=== PATIENT | female | born 1940 | race Caucasian/White ===

== ENCOUNTER → 2016-11-06 | Outpatient (CLI) | payer OTHER ==
[2015-11-11 17:08] VITALS: BP 146/82
--- NOTE | 2016-11-06 16:34 | RAD ---
CHEST RADIOGRAPHS PA AND LATERAL VIEWS CLINICAL HISTORY: 75-year-old female with dyspnea and chest pain. COMPARISON: Chest radiograph August 03, 2014. FINDINGS: The cardiopericardial silhouette is normal. There is no focal consolidation, pleural effu dalia or pneumothorax. The lungs are well inflated. Pulmonary vascularity is normal. Imaged osseous s tructures are intact. Soft tissues are unremarkable. IMPRESSION: No acute cardiopulmonary process. Reported By:
== END ==
LOC: RAD 15:05
PROVIDERS: ATTEND Nurse Practitioner Family
DX: R06.09 Other forms of dyspnea (principal); R07.89 Other chest pain; I10 Essential (primary) hypertension
CPT/HCPCS: 71020

== ENCOUNTER 2016-11-21 13:32 | Emergency (ER) | payer OTHER ==
[2016-11-21 13:37] VITALS: BMI 27.9
[2016-11-21] MEDS ORDERED: NS IV ONE (14:51)
[2016-11-21] MEDS ORDERED: TORADOL 60 MG VIAL IVP ONE (14:54)
[2016-11-21] MEDS ORDERED: NORFLEX INJ IM ONE (14:56)
[2016-11-21] MEDS ORDERED: NS 1/2 1000 ML IV 1,000 ML IV ONE (14:59)
--- NOTE | 2016-11-21 15:00 | DR.GENAD ---
HPI - PCP Primary Care Physician: bernadette - Complaint/Symptoms Chief Complaint Doctors Comments: Right flank pain and right sided pelvic pain. Chief Complaint:: right side and back pain pt thinks she has a UTI - Nurses notes reviewed Nurses Notes Review: Yes - Source History Provided: Patient - Mode of Arrival Mode of Arrival: Ambulatory - Timing Onset of Chief Complaint: 11/20/16 Came on: Gradually - Duration Duration: Intermittent - Severity Severity: Moderate - Other History Other History: nephrolithiasis PMH - PMH Past Medical History: Yes Past Medical History: GERD, Hypertension Past Surgical History: Yes Surgical History: Angioplasty/Stents, Appendectomy, Hysterectomy, Tonsillectomy - Family History History of Family Medical Conditions: Yes Family Medical History: [place], Coronary Artery Disease - Social History Does patient currently use any type of tobacco product: No Have you used tobacco products in the last 12 months: No Type of Tobacco Use: None Does any household member use tobacco: No Alcohol Use: None Do you use any recreational Drugs:: No Lives With: Family Lives Where: Home - infectious screening In the last 2 months have you had wt loss of >10#?: NO Have you had fever, night sweats or hemotysis?: No Have you traveled outside the country in the last 6 months?: No Isolation: Standard ROS - Review of Systems Constitutional: No Symptoms Reported Eyes: No Symptoms Reported ENTM: No Symptoms Reported Respiratoy: No Symptoms Reported Cardiovascular: No Symptoms Reported Gastrointestinal/Abdominal: No Symptoms Reported Genitourinary: Dysuria, Frequency, Hematuria, Other (She was seen yesterday in her PCP's office. U/A revealed nitrite positive and blood. Flank pain started this morning.) Musculoskeletal: No Symptoms Reported Integumentary: No Symptoms Reported Hematologic/Lymphatic: No Symptoms Reported Psychiatric: No Symptoms Reported All Other Systems: Reviewed and Negative PE - Vital Signs Vitals: Temperature 98 F Pulse Rate 80 Respiratory Rate 18 Blood Pressure [Right Arm] 105/64 Blood Pressure 170/100 O2 Sat by Pulse Oximetry 98 - General Limitations: No Limitations General Appearance: Alert, Anxious - Neck Neck Exam: Normal Inspection, Full ROM - Chest Chest Inspection: Normal Inspection - Respiratory Respiratory Exam: Normal Lung Sounds Bilat - Cardiovascular Cardiovascular Exam: Regular Rate, Normal Rhythm, Normal Heart Sounds - Abdominal Exam Abdominal Exam: Normal Inspection, Normal Bowel Sounds, Soft - Extremities Extremities Exam: Normal Inspection, Full ROM - Back Back Exam: (R) CVA Tenderness - Psychiatric Psychiatric Exam: Normal Affect - Skin Skin Exam: Warm, Dry, Intact, Normal Color ROR - Labs Reviewed Result Diagrams: 11/21/16 15:11 11/21/16 15:11 Laboratory: WBC 17.6 X10^3/uL (3.6-10.0) H 11/21/16 15:11 RBC 5.41 X10^6/uL (3.5-5.4) H 11/21/16 15:11 Hgb 15.9 g/dL (12.0-16.0) 11/21/16 15:11 Hct 47.1 % (36.0-47.0) H 11/21/16 15:11 MCV 87.1 fL (80.0-100.0) 11/21/16 15:11 MCH 29.4 pg (27.0-34.0) 11/21/16 15:11 MCHC 33.7 g/dL (33.0-35.0) 11/21/16 15:11 RDW 14.4 % (11.6-16.5) 11/21/16 15:11 Plt Count 220 X10^3/uL (150.0-450.0) 11/21/16 15:11 MPV 9.4 fL (7.4-11.0) 11/21/16 15:11 Neut % 85.1 % (42.0-75.0) H 11/21/16 15:11 Lymph % 7.3 % (21.0-51.0) L 11/21/16 15:11 Lewis % 7.1 % (0.0-13.0) 11/21/16 15:11 Eos % 0.1 % (0.9-2.9) L 11/21/16 15:11 Baso % 0.4 % (0.2-1.0) 11/21/16 15:11 Neut # 15.0 x10^3/uL (2.2-4.8) H 11/21/16 15:11 Lymph # 1.3 X10^3/uL (1.3-2.9) 11/21/16 15:11 Lewis # 1.2 x10^3/uL (0.3-0.8) H 11/21/16 15:11 Eos # 0.0 x10^3/uL (0.0-0.2) 11/21/16 15:11 Baso # 0.1 X10^3/uL (0.0-0.1) 11/21/16 15:11 Absolute Nucleated RBC 0.0 /100WBC 11/21/16 15:11 Sodium 141 mmol/L (136-145) 11/21/16 15:11 Corrected Sodium 142 mmol/L (136-145) 11/21/16 15:11 Potassium 4.1 mmol/L (3.5-5.1) 11/21/16 15:11 Chloride 105 mmol/L (98-107) 11/21/16 15:11 Carbon Dioxide 26.5 mmol/L (21-32) 11/21/16 15:11 BUN 23 mg/dL (7-18) H 11/21/16 15:11 Creatinine 1.10 mg/dL (0.55-1.02) H 11/21/16 15:11 Est GFR (MDRD) Af Amer > 60 (>60) 11/21/16 15:11 Est GFR (MDRD) Non-Af 51 (>60) L 11/21/16 15:11 Glucose 121 mg/dL (65-99) H 11/21/16 15:11 Calcium 9.5 mg/dL (8.5-10.1) 11/21/16 15:11 Corrected Calcium TNP 11/21/16 15:11 Total Bilirubin 0.70 mg/dL (0.2-1.0) 11/21/16 15:11 AST 26 Units/L (15-37) 11/21/16 15:11 ALT 33 Units/L (12-78) 11/21/16 15:11 Alkaline Phosphatase 82 Units/L (46-116) 11/21/16 15:11 Total Protein 7.9 g/dL (6.4-8.2) 11/21/16 15:11 Albumin 3.7 g/dL (3.4-5.0) 11/21/16 15:11 Globulin 4.2 g/dL (2.5-4.5) 11/21/16 15:11 Albumin/Globulin Ratio 0.9 Ratio (1.1-2.1) L 11/21/16 15:11 Specimen Type Clean catch urine 11/21/16 14:57 Urine Color Yellow (YELLOW) 11/21/16 14:57 Urine Appearance Cloudy (CLEAR) 11/21/16 14:57 Urine RBC 25-50 /HPF (NEGATIVE) 11/21/16 14:57 Urine WBC 0-3 /HPF (NEGATIVE) 11/21/16 14:57 Ur Squamous Epith Cells Moderate /HPF (NEGATIVE) 11/21/16 14:57 Urine Bacteria 1+ /HPF (Negative) 11/21/16 14:57 Ur Culture Indicated? Yes/culture set up 11/21/16 14:57 Micro UA Comment Unable to perform (-) 11/21/16 14:57 - Diagnosis Discharge Problem: Ureteral stone, UTI (urinary tract infection), Right nephrolithiasis, Hydroureteronephrosis, Ureterolithiasis - Discharge Plan Disposition: HOME, SELF-CARE Condition: Stable - Follow ups/Referrals Follow ups/Referrals: ELISA ESPINO [Primary Care Provider] - 3 days - Instructions Additional Notes - Additional Notes Additional Notes: I spoke with Dr. Brady Dixon and he agrees to accept this patient in transfer to [facility].
[2016-11-21] MEDS ORDERED: TORADOL 60 MG VIAL ONE (15:10)
[2016-11-21] MEDS ORDERED: NORFLEX INJ ONE (15:11)
[2016-11-21 15:17] LABS: BASOPHILS # (AUTO) 0.1 X10^3/uL (0.0-0.1); BASOPHILS % (AUTO) 0.4 % (0.2-1.0); EOSINOPHILS % (AUTO) 0.1 % (0.9-2.9); HEMATOCRIT 47.1 % (36.0-47.0); HEMOGLOBIN 15.9 g/dL (12.0-16.0); LYMPHOCYTES # (AUTO) 1.3 X10^3/uL (1.3-2.9); LYMPHOCYTES % (AUTO) 7.3 % (21.0-51.0); MEAN CORPUSCULAR HEMOGLOBIN 29.4 pg (27.0-34.0); MEAN CORPUSCULAR HGB CONC 33.7 g/dL (33.0-35.0); MEAN CORPUSCULAR VOLUME 87.1 fL (80.0-100.0); MEAN PLATELET VOLUME 9.4 fL (7.4-11.0); MONOCYTES # (AUTO) 1.2 x10^3/uL (0.3-0.8); MONOCYTES % (AUTO) 7.1 % (0.0-13.0); NEUTROPHILS % (AUTO) 85.1 % (42.0-75.0); PLATELET COUNT 220 X10^3/uL (150.0-450.0); RED BLOOD COUNT 5.41 X10^6/uL (3.5-5.4); RED CELL DISTRIBUTION WIDTH 14.4 % (11.6-16.5); WHITE BLOOD COUNT 17.6 X10^3/uL (3.6-10.0)
[2016-11-21 15:22] LABS: APPEARANCE,URINE CLOUDY (CLEAR); BACTERIA,URINE 1+ /HPF (Negative); COLOR,URINE YELLOW (YELLOW); RBC,URINE 25-50 /HPF (NEGATIVE); SQUAMOUS EPITHELIAL CELL,UR MODERATE /HPF (NEGATIVE)
[2016-11-21 15:27] LABS: ALANINE AMINOTRANSFERASE 33 Units/L (12-78); ALBUMIN 3.7 g/dL (3.4-5.0); ALKALINE PHOSPHATASE 82 Units/L (46-116); ASPARTATE AMINO TRANSFERASE 26 Units/L (15-37); BLOOD UREA NITROGEN 23 mg/dL (7-18); CALCIUM 9.5 mg/dL (8.5-10.1); CARBON DIOXIDE 26.5 mmol/L (21-32); CHLORIDE 105 mmol/L (98-107); COR NA(FOR HYPERGLY) 142 mmol/L (136-145); GLUCOSE 121 mg/dL (65-99); SODIUM 141 mmol/L (136-145); TOTAL PROTEIN 7.9 g/dL (6.4-8.2); eGFR BLACK RACES > 60 (>60); eGFR NON BLACK RACES 51 (>60)
[2016-11-21] MEDS ORDERED: LEVAQUIN PREMIX IV 500 MG 500 MG/100 ML BAG IV ONE ×2 (15:39→16:07)
--- NOTE | 2016-11-21 15:46 | CT ---
CT abdomen and pelvis without contrast Indication: Hematuria with right lower abdominal and flank pain Comparison: 09/29/2014 Technique: Multiple axial images of the abdomen and pelvis were obtained from the lung bases to the pubic symph ysis without the administration of IV contrast. Radiation dose reduction techniques were performed utilizing adjustment for MA/kVP based on patient body size. Findings: The lung bases are clear. Moderate calcification of the mitral valve. The gallbladder, bile ducts, s pleen, pancreas and adrenal glands are normal. The right kidney is enlarged with marked perinephric stranding and multiple large stones present within the renal pelvis, right lower pole and proximal u reter with an approximate 5 mm stone within the mid right ureter on axial image 49 causing moderate hydroureteronephrosis. There also multiple stones within the distal right ureter, UPJ also a contrib uting to hydronephrosis. Left kidney demonstrates no nephrolithiasis, hydronephrosis or mass. Upper GI tract demonstrates no evidence of mass or obstruction. Urinary bladder is diffusely thick w alled. The rectum is normal. Moderate diverticulosis is noted within the sigmoid and descending colo n but evidence of acute diverticulitis. No pelvic free fluid or adenopathy. Abdominal aorta is ino l in caliber with moderate calcified atherosclerotic disease. Review of bone windows demonstrates no acute osseous abnormality. Impression: 1.Severe right-sided perinephric stranding with moderate hydroureteronephrosis secondary to multiple large stones within the lower pole of the right kidney, right renal pelvis, proximal ureter and dis walt ureter extending to the UPJ. Urologic consultation is recommended. 2. Moderate distal and sigmoid colonic diverticulosis without evidence of acute diverticulitis. Reported By:
[2016-11-21 18:39] VITALS: BP 118/63
[2016-11-21] MEDS ORDERED: MORPHINE SULFATE INJ 4 MG IVP ONE (19:31)
[2016-11-21] MEDS ORDERED: ZOFRAN INJ 4 MG VIAL IVP ONE (19:32)
[2016-11-21] MEDS ORDERED: ZOFRAN INJ 4 MG VIAL ONE (19:34)
[2016-11-21] MEDS ORDERED: MORPHINE SULFATE INJ 4 MG ONE (19:34)
== END 2016-11-21 19:42 | disposition short-term general hospital (02) ==
LOC: ER 13:32
DX: N20.1 Calculus of ureter (principal); N39.0 Urinary tract infection, site not specified; N20.0 Calculus of kidney; N13.30 Unspecified hydronephrosis
CPT/HCPCS: 36415; 74176; 80053; 81015; 85025; 87040; 87086; 96365; 96367; 96372; 96374; 96375; 99284; 99285; A4222; J1885; J1956; J2270; J2360; J2405

== ENCOUNTER 2017-04-17 12:18 | Inpatient (IN) | payer OTHER ==
--- NOTE | 2017-04-17 13:14 | DR.H&P ---
H&P - History & Physical for Day of: H&P Date: 04/17/17 - Chief Complaint Chief Complaint: abdominal pain, n/v, blood in urine - Allergies Allergies/Adverse Reactions: Allergies Allergy/AdvReac Type Severity Reaction Status Date / Time MS Naloxone [From Talwin Nx] Allergy Verified 09/29/14 07:51 MS Pentazocine Allergy Verified 09/29/14 07:51 [From Talwin Compound] MS Sulfa Drugs [Sulfa Drugs] Allergy Verified 09/29/14 07:51 - History of Present Illness History of Present Illness: patient is a 76-year-old white female who was a direct admit from Dr. Smith's office after presenting with a follow-up visit for UTI symptoms. Patient was seen in the office last week for urinary tract symptoms as well as hematuria. Patient was started on by mouth antibiotics, Cipro. Patient complained of severe flank pain as well as blood in urine patient has a history of renal stones also with renal stone obstruction. Patient states she has been seen by Dr. Dixon a urologist in [place]. Patient has a past medical history of kidney stones, hypertension, coronary artery disease, osteoarthritis. We plan to admit patient for further evaluation of hematuria as well as treatment of UTI pain and nausea. We'll obtain a CT of the abdomen and pelvis on admission. We will resume patient's home medications - Past Medical History Past Medical History: GERD, Hypertension - Past Surgical History Surgical History: Angioplasty/Stents, Appendectomy, Hysterectomy, Tonsillectomy - Family History Family Medical History: [place], Coronary Artery Disease - Social History Does patient currently use any type of tobacco product: No Have you used tobacco products in the last 12 months: No Type of Tobacco Use: None Does any household member use tobacco: No Alcohol Use: None Drug Use: None - Review of Systems Constitutional: Fever, Weakness Eyes: No Symptoms Reported ENT: No Symptoms Reported Respiratory: No Symptoms Reported Cardiovascular: No Symptoms Reported Gastrointestinal: Abdominal Pain Genitourinary: Hematuria, Retention Musculoskeletal: Back Pain, Leg Pain Skin: No Symptoms Reported Neurological: No Symptoms Reported - Physical Exam Vital Signs: Blood Pressure [Right Arm] 118/63 Blood Pressure 118/63 Oriented: Normal Eyes: Normal Ear: Normal Nose: Normal Throat: Normal Respiratory: Clear Throughout Cardiovascular: Normal : Normal Auscultation: Bowel Sounds: Normal Palpation: Normal Tenderness: RLQ, LUQ Skin: Normal Musculoskeletal: Right, Left, Knee, Back:Lumbar Psychiatric: Anxiety Affect: Anxious Speech Pattern: Clear, Appropriate - Assessment/Plan (1) UTI (urinary tract infection) Status: Acute Plan: plan to admit for iv atbx, pain and nausea control. ct abd pelvis, admission labs, cbc, cmp ua and urine culture. will resume home meds (2) Hydroureteronephrosis Status: Acute (3) Right nephrolithiasis Status: Acute (4) CAD (coronary artery disease) Status: Acute (5) Hypertension Status: Acute
[2017-04-17] MEDS ORDERED: INVANZ INJ 1 GM VIAL 1 GM in NS 50 ML IV 50 ML IV SCH (14:00)
--- NOTE | 2017-04-17 14:00 | RAD ---
Examination: Chest, PA view History: History of pneumonia, SOB Comparison reference: 11/06/2016 Findings: Normal heart size with clear lungs. There is no obvious infiltrate, hilar adenopathy or ple ural fluid. There is degenerative calcification of the mitral annulus. Impression: No active disease demonstrated on PA chest projection. Reported By:
--- NOTE | 2017-04-17 14:14 | CT ---
CT abdomen and pelvis without contrast Indication: Severe flank pain and hematuria Technique: Helical CT images of the abdomen and pelvis were obtained without IV contrast. Reformatted images in the coronal and sagittal planes were also generated for review. Comparison: 11/21/2016 Findings: Lung bases are clear. No aggressive osseous lesions are identified. Within the limits of a noncontrast exam, the liver, gallbladder, spleen, pancreas and adrenals are un remarkable. There is moderate right-sided hydronephrosis, secondary to a large 2.0 x 1.1 x 2.5 cm sto ne (transverse by AP by CC dimension) within the ureteropelvic junction. Previously seen stones withi n the proximal and distal right ureter are no longer identified. There is persistent but improved mil d right perinephric and periureteral stranding. The left kidney and visualized ureter are normal with out stones or obstruction. There is colonic diverticulosis without evidence of acute inflammation. The remaining GI tract is nor mal. There is moderate calcification of the abdominal aorta without aneurysm. The collapsed urinary b ladder is normal. The patient is post hysterectomy. No free air, free fluid or lymphadenopathy is chandan ntified. Impression: Moderate right-sided hydronephrosis, secondary to a large (2.5 cm) calculus within the ureteropelvic junction. Previously seen stones within the proximal and distal right ureter are no longer identified . Colonic diverticulosis and additional incidental findings, as above. Reported By:
[2017-04-17 14:37] LABS: BASOPHILS # (AUTO) 0.1 X10^3/uL (0.0-0.1); BASOPHILS % (AUTO) 0.7 % (0.2-1.0); EOSINOPHILS % (AUTO) 0.4 % (0.9-2.9); HEMATOCRIT 38.2 % (36.0-47.0); HEMOGLOBIN 12.9 g/dL (12.0-16.0); LYMPHOCYTES # (AUTO) 2.5 X10^3/uL (1.3-2.9); LYMPHOCYTES % (AUTO) 22.3 % (21.0-51.0); MEAN CORPUSCULAR HGB CONC 33.8 g/dL (33.0-35.0); MEAN CORPUSCULAR VOLUME 85.7 fL (80.0-100.0); MEAN PLATELET VOLUME 8.6 fL (7.4-11.0); MONOCYTES # (AUTO) 1.2 x10^3/uL (0.3-0.8); MONOCYTES % (AUTO) 11.1 % (0.0-13.0); NEUTROPHILS # (AUTO) 7.3 x10^3/uL (2.2-4.8); NEUTROPHILS % (AUTO) 65.5 % (42.0-75.0); PLATELET COUNT 197 X10^3/uL (150.0-450.0); RED BLOOD COUNT 4.46 X10^6/uL (3.5-5.4); RED CELL DISTRIBUTION WIDTH 14.7 % (11.6-16.5); WHITE BLOOD COUNT 11.2 X10^3/uL (3.6-10.0)
[2017-04-17 14:48] LABS: ALANINE AMINOTRANSFERASE 24 Units/L (12-78); ALBUMIN 3.4 g/dL (3.4-5.0); ALKALINE PHOSPHATASE 71 Units/L (46-116); ASPARTATE AMINO TRANSFERASE 26 Units/L (15-37); BLOOD UREA NITROGEN 20 mg/dL (7-18); CALCIUM 9.3 mg/dL (8.5-10.1); CARBON DIOXIDE 24.9 mmol/L (21-32); CHLORIDE 106 mmol/L (98-107); SODIUM 140 mmol/L (136-145); TOTAL PROTEIN 7.1 g/dL (6.4-8.2); eGFR BLACK RACES 51 (>60); eGFR NON BLACK RACES 42 (>60)
[2017-04-17] MEDS: MORPHINE SULFATE INJ 2 MG INJ IVP PRN ×2 (15:23→21:31)
[2017-04-17] MEDS: NS 1000 ML 1,000 ML IV SCH (15:23)
[2017-04-17 15:31] VITALS: BMI 25.9
[2017-04-17] MEDS ORDERED: MAGNESIUM SULFATE 1 GM/100 mL PREMIX 1 GM/100 ML BAG IV PRN (16:08)
[2017-04-17] MEDS ORDERED: K-LYTE EFFERVESCENT PO PRN (16:08)
[2017-04-17] MEDS ORDERED: MAG-OX TAB PO PRN (16:08)
[2017-04-17 17:07] LABS: AMORPHOUS SEDIMENT,UR 1+ /HPF (NEGATIVE); APPEARANCE,URINE CLOUDY (CLEAR); BACTERIA,URINE 1+ /HPF (Negative); COLOR,URINE ORANGE (YELLOW); RBC,URINE 30-40 /HPF (NEGATIVE); SQUAMOUS EPITHELIAL CELL,UR FEW /HPF (NEGATIVE)
[2017-04-17] MEDS: INVANZ INJ 1 GM VIAL 0.5 GM in NS 50 ML IV 50 ML IV SCH (17:14)
[2017-04-17] MEDS: K-RIDER 10 MEQ/NS 100 ML 10 MEQ/100 ML BAG IV PRN ×4 (18:56→22:27)
[2017-04-18] MEDS: NS 1000 ML 1,000 ML IV SCH ×2 (05:21→18:05)
[2017-04-18 06:06] LABS: BASOPHILS % (AUTO) 0.4 % (0.2-1.0); EOSINOPHILS # (AUTO) 0.3 x10^3/uL (0.0-0.2); EOSINOPHILS % (AUTO) 4.9 % (0.9-2.9); HEMATOCRIT 35.7 % (36.0-47.0); HEMOGLOBIN 12.2 g/dL (12.0-16.0); LYMPHOCYTES # (AUTO) 2.7 X10^3/uL (1.3-2.9); LYMPHOCYTES % (AUTO) 38.7 % (21.0-51.0); MEAN CORPUSCULAR HEMOGLOBIN 29.7 pg (27.0-34.0); MEAN CORPUSCULAR HGB CONC 34.2 g/dL (33.0-35.0); MEAN CORPUSCULAR VOLUME 86.9 fL (80.0-100.0); MEAN PLATELET VOLUME 9.5 fL (7.4-11.0); MONOCYTES # (AUTO) 0.8 x10^3/uL (0.3-0.8); MONOCYTES % (AUTO) 11.4 % (0.0-13.0); NEUTROPHILS # (AUTO) 3.1 x10^3/uL (2.2-4.8); NEUTROPHILS % (AUTO) 44.6 % (42.0-75.0); PLATELET COUNT 175 X10^3/uL (150.0-450.0); RED BLOOD COUNT 4.11 X10^6/uL (3.5-5.4); RED CELL DISTRIBUTION WIDTH 14.8 % (11.6-16.5); WHITE BLOOD COUNT 6.9 X10^3/uL (3.6-10.0)
[2017-04-18] MEDS: MORPHINE SULFATE INJ 2 MG INJ IVP PRN ×2 (06:26→13:45)
[2017-04-18 06:45] LABS: ALANINE AMINOTRANSFERASE 20 Units/L (12-78); ALBUMIN 2.6 g/dL (3.4-5.0); ALKALINE PHOSPHATASE 59 Units/L (46-116); ASPARTATE AMINO TRANSFERASE 22 Units/L (15-37); BLOOD UREA NITROGEN 18 mg/dL (7-18); CALCIUM 8.7 mg/dL (8.5-10.1); CARBON DIOXIDE 25.6 mmol/L (21-32); CHLORIDE 112 mmol/L (98-107); COR CA(FOR HYPOALB) 9.8 mg/dL (8.5-10.1); CREATININE 0.93 mg/dL (0.55-1.02); SODIUM 146 mmol/L (136-145); TOTAL PROTEIN 6.1 g/dL (6.4-8.2); eGFR BLACK RACES > 60 (>60); eGFR NON BLACK RACES > 60 (>60)
[2017-04-18] MEDS ORDERED: NORCO 5/325 MG TAB PO PRN (08:24)
[2017-04-18] MEDS ORDERED: TIMOPTIC 0.5% EYE DROPS EACHEYE SCH (09:00)
[2017-04-18] MEDS ORDERED: PriLOSEC PO SCH (09:00)
[2017-04-18] MEDS ORDERED: MOBIC TAB 15 MG PO SCH (09:00)
[2017-04-18] MEDS ORDERED: LOPRESSOR TAB 25 MG PO SCH (09:00)
[2017-04-18] MEDS ORDERED: ASPIRIN 81 MG CHEWTAB PO SCH (09:00)
[2017-04-18] MEDS: PHENERGAN INJ 25 MG IV PRN ×2 (10:03→17:45)
[2017-04-18] MEDS: INVANZ INJ 1 GM VIAL 0.5 GM in NS 50 ML IV 50 ML IV SCH (15:27)
[2017-04-18 16:28] VITALS: BP 124/65
[2017-04-18] MEDS ORDERED: XALATAN EACHEYE SCH (21:00)
== END 2017-04-18 18:20 | disposition short-term general hospital (02) | DRG 690 ==
LOC: MED/SURG 12:18
PROVIDERS: ADMIT Internal Medicine; ATTEND Internal Medicine
DX: N39.0 Urinary tract infection, site not specified (principal); R31.9 Hematuria, unspecified; R10.84 Generalized abdominal pain; R11.2 Nausea with vomiting, unspecified; I10 Essential (primary) hypertension; I25.10 Atherosclerotic heart disease of native coronary artery without angina pectoris; K21.9 Gastro-esophageal reflux disease without esophagitis; N13.39 Other hydronephrosis; N13.2 Hydronephrosis with renal and ureteral calculous obstruction; Z87.442 Personal history of urinary calculi; E87.6 Hypokalemia
CPT/HCPCS: 36415; 71010; 74176; 80053; 81015; 83735; 84132; 85025; 87086; A4222; J1335; J2270; J2550; J3480

== ENCOUNTER → 2017-05-15 | Outpatient (CLI) | payer OTHER ==
[2017-04-18 16:28] VITALS: BP 124/65
--- NOTE | 2017-05-15 11:33 | RAD ---
Examination: KUB History: Kidney stones, stent placement Findings: There is now noted a double-J urinary stent on the right, extending from the level of the r ight kidney to the urinary bladder. There are no definite stones identified within the right kidney o r course of the ureter. Minimal calcification in the right pelvis, adjacent to the stent, is probably vascular. Intestinal gas pattern is normal. No free fluid or mass formation in the abdomen is demons trated. Impression: Right urinary stent placement. Very small calcification adjacent to the distal 3rd of the stent is probably vascular calcification, possibly a calculus fragment in the distal right ureter. Reported By:
[2017-05-15 12:08] LABS: BLOOD UREA NITROGEN 24 mg/dL (7-18); CALCIUM 9.3 mg/dL (8.5-10.1); CHLORIDE 106 mmol/L (98-107); SODIUM 141 mmol/L (136-145); eGFR BLACK RACES > 60 (>60); eGFR NON BLACK RACES > 60 (>60)
--- NOTE | 2017-05-16 09:51 | CT ---
HISTORY: Follow up kidney stones with stent placement Study: CT abdomen and pelvis without contrast Comparison: 04/17/2017 Technique: Multiple axial images of the abdomen and pelvis were obtained without IV contrast. Dose reduction t echniques including Automated Exposure Control (AEC) and adjustment of mA and kV were utilized. Findings: Please note evaluation is limited without use of IV contrast. The visualized lung bases are clear. Calcifications of the mitral valve are noted without cardiomega ly. The unenhanced spleen, pancreas, adrenal glands, and liver are unremarkable. The gallbladder is n ormal. Interval right double-J ureteral stent placement with decompression of the collecting system a nd no significant hydronephrosis. Redemonstrated large 2.5 cm stone lodged at the right UPJ. The left kidney and ureter are normal. No free intraperitoneal air. No evidence of intestinal obstruction or inflammation. Colonic diverticu losis is again noted. The appendix is not visualized. No free fluid is seen. The soft tissues and osseous structures are unremarkable. The vascular structures are unremarkable. N o pathologically enlarged lymph nodes are identified. The urinary bladder is unremarkable with the di stal portion of the stent terminating near the UVJ. The uterus is removed. IMPRESSION: 1. Interval right ureteral stent placement with decompression of the collecting system. 2. Stable 2.5 mm calcified stone at the right UPJ. 3. Colonic diverticulosis. Reported By:
== END ==
LOC: RAD 10:50
PROVIDERS: ATTEND Nurse Practitioner Adult Health
DX: R31.9 Hematuria, unspecified (principal); N20.0 Calculus of kidney
CPT/HCPCS: 36415; 74000; 74176; 80048

== ENCOUNTER → 2017-08-19 | Outpatient (CLI) | payer OTHER | LOC: LAB 14:00 | PROVIDERS: ATTEND Specialist | DX: M10.9 Gout, unspecified (principal) | CPT/HCPCS: 36415; 84550 ==

== ENCOUNTER 2017-11-27 14:55 | Inpatient (IN) ==
[2017-11-27] MEDS: NS 1000 ML 1,000 ML IV SCH (16:59)
[2017-11-27] MEDS: CIPRO IV 400 MG PREMIX* 400 MG/200 ML IV.SOLN. IV SCH ×2 (16:59→20:33)
[2017-11-27 17:05] LABS: BASOPHILS # (AUTO) 0.1 X10^3/uL (0.0-0.1); BASOPHILS % (AUTO) 1.1 % (0.2-1.0); EOSINOPHILS # (AUTO) 0.2 x10^3/uL (0.0-0.2); EOSINOPHILS % (AUTO) 2.7 % (0.9-2.9); HEMATOCRIT 44.4 % (36.0-47.0); HEMOGLOBIN 14.7 g/dL (12.0-16.0); LYMPHOCYTES # (AUTO) 2.1 X10^3/uL (1.3-2.9); LYMPHOCYTES % (AUTO) 29.7 % (21.0-51.0); MEAN CORPUSCULAR HEMOGLOBIN 30.1 pg (27.0-34.0); MEAN CORPUSCULAR HGB CONC 33.2 g/dL (33.0-35.0); MEAN CORPUSCULAR VOLUME 90.7 fL (80.0-100.0); MEAN PLATELET VOLUME 8.1 fL (7.4-11.0); MONOCYTES % (AUTO) 14.1 % (0.0-13.0); NEUTROPHILS # (AUTO) 3.7 x10^3/uL (2.2-4.8); NEUTROPHILS % (AUTO) 52.4 % (42.0-75.0); PLATELET COUNT 305 X10^3/uL (150.0-450.0); RED BLOOD COUNT 4.89 X10^6/uL (3.5-5.4); RED CELL DISTRIBUTION WIDTH 15.3 % (11.6-16.5); WHITE BLOOD COUNT 7.1 X10^3/uL (3.6-10.0)
[2017-11-27 17:15] LABS: ALANINE AMINOTRANSFERASE 81 Units/L (12-78); ALBUMIN 3.6 g/dL (3.4-5.0); ALKALINE PHOSPHATASE 133 Units/L (46-116); ASPARTATE AMINO TRANSFERASE 57 Units/L (15-37); BLOOD UREA NITROGEN 12 mg/dL (7-18); CALCIUM 9.6 mg/dL (8.5-10.1); CARBON DIOXIDE 28.3 mmol/L (21-32); CHLORIDE 104 mmol/L (98-107); CREATININE 0.69 mg/dL (0.55-1.02); SODIUM 141 mmol/L (136-145); TOTAL PROTEIN 7.9 g/dL (6.4-8.2); eGFR NON BLACK RACES > 60 (>60)
[2017-11-27 17:23] VITALS: BMI 27.3
[2017-11-27] MEDS ORDERED: MORPHINE SULFATE INJ 2 MG INJ IVP PRN (17:55)
[2017-11-27] MEDS ORDERED: NORCO 5/325 MG TAB PO PRN (17:57)
[2017-11-27] MEDS ORDERED: LOPRESSOR TAB 25 MG PO SCH (18:00)
[2017-11-27] MEDS ORDERED: TIMOPTIC 0.5% EYE DROPS EACHEYE SCH (18:00)
--- NOTE | 2017-11-27 18:10 | DR.H&P ---
H&P - History & Physical for Day of: H&P Date: 11/27/17 - Chief Complaint Chief Complaint: lower abdominal pain, fever, n/v - History of Present Illness History of Present Illness: 76 WF DIRECT ADMIT FROM DR HONG OFFICE WITH UTI , FEVER AND ABDOMINAL PAIN. PT WAS SEEN EARLIER THIS WEEK, GIVEN PO CIPRO AND ABD SERIES. PT'S XRAY REVEALED RENAL STONE. PT STATES SHE HAS HAD N/V. PT HAS PHM OF RENAL STONES REQUIRING LITHOTRIPSY. PT IS UNDER THE CARE OF DR DRUMMOND IN [place]. PT HAS PMH OF HTN, CAD, OA, RENAL STONES. PT ADMITTED FOR EVALUATION OF PAIN AND FEVER, R/O PYELONEPHRITIS. - Past Medical History Past Medical History: Arthritis, Coronary Artery Disease, GERD, Hypertension, Kidney Stones - Past Surgical History Surgical History: Appendectomy, Hysterectomy, Tonsillectomy - Family History Family Medical History: Coronary Artery Disease, Hypertension - Social History Does patient currently use any type of tobacco product: No Have you used tobacco products in the last 12 months: No Type of Tobacco Use: None Does any household member use tobacco: No Alcohol Use: None Drug Use: None - Medications Home Medications: naloxone Allergy (Verified 04/17/17 16:02) pentazocine Allergy (Verified 04/17/17 16:02) Sulfa (Sulfonamide Antibiotics) [SULFA] Allergy (Verified 04/17/17 16:02) CONTINUE taking the following medications allopurinol 300 mg PO DAILY 11/27/17 [History] - Review of Systems Constitutional: Fever, Chills Eyes: No Symptoms Reported ENT: No Symptoms Reported Respiratory: No Symptoms Reported Cardiovascular: No Symptoms Reported Gastrointestinal: Nausea, Vomiting Genitourinary: Dysuria, Frequency, Hematuria Musculoskeletal: Back Pain Skin: No Symptoms Reported Neurological: No Symptoms Reported - Physical Exam Vital Signs: Blood Pressure [Right Arm] 124/65 Blood Pressure 124/65 Oriented: Normal Eyes: Normal Ear: Normal Nose: Normal Throat: Normal Respiratory: Clear Throughout Cardiovascular: Normal : Normal Auscultation: Bowel Sounds: Normal Palpation: Normal Tenderness: Diffuse Skin: Normal Musculoskeletal: Right, Left, Back:Thoracic, Tender Psychiatric: Anxiety Speech Pattern: Clear, Appropriate - Assessment/Plan (1) Abdominal pain Status: Acute Plan: ADMIT, ADMISSION LABS UA/UC. IV ATBX, CT ABD PELVIS, PAIN AND NAUSEA CONTROL. 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
[2017-11-27] MEDS: ZOFRAN INJ 4 MG VIAL IVP PRN (18:13)
[2017-11-27 18:42] LABS: BILIRUBIN,URINE NEGATIVE (NEGATIVE); BLOOD/HEMOGLOBIN,URINE 1+ (NEGATIVE); GLUCOSE, URINE NEGATIVE (NEGATIVE); KETONES,URINE NEGATIVE (NEGATIVE); LEUKOCYTE ESTERASE ,URINE NEGATIVE (NEGATIVE); NITRITES,URINE NEGATIVE (NEGATIVE); PROTEIN,URINE NEGATIVE (NEGATIVE); UROBILINOGEN,URINE NORMAL (NORMAL)
[2017-11-27 18:49] LABS: APPEARANCE,URINE CLEAR (CLEAR); BACTERIA,URINE TRACE /HPF (NEGATIVE); COLOR,URINE YELLOW (YELLOW); RBC,URINE 0-2 /HPF (NONE SEEN); SQUAMOUS EPITHELIAL CELL,UR MODERATE /HPF (NEGATIVE)
[2017-11-27 18:50] LABS: MUCUS,URINE FEW /HPF (NEGATIVE)
[2017-11-27] MEDS: XALATAN EACHEYE SCH (20:37)
[2017-11-27] MEDS: TIMOPTIC 0.5% EYE DROPS EACHEYE SCH (20:38)
[2017-11-27] MEDS ORDERED: NS 100 ML IV 100 ML IV ONE (21:01)
[2017-11-27] MEDS: LOPRESSOR TAB 25 MG PO SCH (21:34)
--- NOTE | 2017-11-28 02:02 | CT ---
CT ABDOMEN AND PELVIS WITH IV AND ORAL CONTRAST CLINICAL HISTORY: 76-year-old female with abdominal pain, fever and UTI. History of appendectomy and hysterectomy. COMPARISON: CT abdomen and pelvis 05/15/2017. TECHNIQUE: Multiple contiguous axial images of the abdomen and pelvis were obtained following the adm inistration of 100 mL Omnipaque 350 IV and oral contrast. Coronal and sagittal reformatted imaging w as submitted. FINDINGS: The lung bases are clear without pulmonary nodules, masses, or pleural fluid collections. The inferi or imaged mediastinum and heart is normal in size and there is no pericardial effusion. The liver, gallbladder, pancreas, and spleen are within normal limits. The adrenal glands are normal bilaterally. The kidneys perfuse in a normal fashion and the ureters r un in an unobstructed course to a well distended urinary bladder. Status post hysterectomy. Peripherally calcified 1.8 x 2.8 x 3.8 cm (AP, transverse and craniocaudad ) right adnexal cyst. Left adnexa unremarkable. Pelvic phleboliths are present. Oral contrast reaches the sigmoid colon. Status post appendectomy. The bowel is without obstruction o r inflammation and there is no free fluid or free air within the peritoneal cavity. Diverticulosis wi thout CT evidence of diverticulitis. There are no pathologically enlarged lymph nodes in the abdomen or pelvis. Scattered atherosclerotic calcification of the aorta and its branches. Soft tissues are normal. The osseous structures are intact without fracture or malalignment. IMPRESSION: 1. No acute intra-abdominal or intrapelvic process. 2. Partially calcified right adnexal cyst measuring up to 3.8 cm, not significantly changed from prio r examination dated 05/15/2017. Further evaluation with ultrasound is recommended if not previously p erformed. 3. Status post appendectomy and hysterectomy with normal gallbladder. 4. Diverticulosis without CT evidence of diverticulitis. Reported By:
[2017-11-28] MEDS: ZOFRAN INJ 4 MG VIAL IVP PRN ×3 (04:07→20:19)
[2017-11-28] MEDS: NS 1000 ML 1,000 ML IV SCH ×3 (05:45→20:17)
[2017-11-28 05:48] LABS: BASOPHILS % (AUTO) 0.5 % (0.2-1.0); EOSINOPHILS # (AUTO) 0.1 x10^3/uL (0.0-0.2); EOSINOPHILS % (AUTO) 2.1 % (0.9-2.9); HEMATOCRIT 39.1 % (36.0-47.0); HEMOGLOBIN 13.2 g/dL (12.0-16.0); LYMPHOCYTES # (AUTO) 1.8 X10^3/uL (1.3-2.9); LYMPHOCYTES % (AUTO) 26.1 % (21.0-51.0); MEAN CORPUSCULAR HEMOGLOBIN 30.6 pg (27.0-34.0); MEAN CORPUSCULAR HGB CONC 33.9 g/dL (33.0-35.0); MEAN CORPUSCULAR VOLUME 90.3 fL (80.0-100.0); MEAN PLATELET VOLUME 8.2 fL (7.4-11.0); MONOCYTES # (AUTO) 1.1 x10^3/uL (0.3-0.8); MONOCYTES % (AUTO) 15.6 % (0.0-13.0); NEUTROPHILS # (AUTO) 3.9 x10^3/uL (2.2-4.8); NEUTROPHILS % (AUTO) 55.7 % (42.0-75.0); PLATELET COUNT 300 X10^3/uL (150.0-450.0); RED BLOOD COUNT 4.33 X10^6/uL (3.5-5.4); WHITE BLOOD COUNT 7.1 X10^3/uL (3.6-10.0)
[2017-11-28 05:57] LABS: ALANINE AMINOTRANSFERASE 62 Units/L (12-78); ALBUMIN 2.9 g/dL (3.4-5.0); ALKALINE PHOSPHATASE 118 Units/L (46-116); ASPARTATE AMINO TRANSFERASE 45 Units/L (15-37); BLOOD UREA NITROGEN 13 mg/dL (7-18); CALCIUM 8.8 mg/dL (8.5-10.1); CARBON DIOXIDE 25.9 mmol/L (21-32); CHLORIDE 105 mmol/L (98-107); COR CA(FOR HYPOALB) 9.7 mg/dL (8.5-10.1); COR NA(FOR HYPERGLY) 141 mmol/L (136-145); CREATININE 0.98 mg/dL (0.55-1.02); SODIUM 140 mmol/L (136-145); TOTAL PROTEIN 6.7 g/dL (6.4-8.2); eGFR NON BLACK RACES 58 (>60)
[2017-11-28] MEDS ORDERED: PHENERGAN INJ 25 MG IV PRN (07:42)
[2017-11-28] MEDS ORDERED: PHENERGAN INJ 25 MG ONE (07:45)
[2017-11-28] MEDS: TIMOPTIC 0.5% EYE DROPS EACHEYE SCH ×2 (08:01→20:18)
[2017-11-28] MEDS: LOPRESSOR TAB 25 MG PO SCH ×2 (08:01→20:17)
[2017-11-28] MEDS: CIPRO IV 400 MG PREMIX* 400 MG/200 ML IV.SOLN. IV SCH ×2 (08:01→20:17)
[2017-11-28] MEDS: DEMEROL INJ IVP PRN ×2 (12:55→20:18)
[2017-11-28] MEDS: XALATAN EACHEYE SCH (20:18)
[2017-11-29] MEDS: DEMEROL INJ IVP PRN ×4 (01:41→22:08)
[2017-11-29 06:24] LABS: BASOPHILS # (AUTO) 0.1 X10^3/uL (0.0-0.1); BASOPHILS % (AUTO) 0.7 % (0.2-1.0); EOSINOPHILS # (AUTO) 0.2 x10^3/uL (0.0-0.2); EOSINOPHILS % (AUTO) 2.1 % (0.9-2.9); HEMATOCRIT 37.9 % (36.0-47.0); HEMOGLOBIN 12.8 g/dL (12.0-16.0); LYMPHOCYTES # (AUTO) 2.2 X10^3/uL (1.3-2.9); LYMPHOCYTES % (AUTO) 25.3 % (21.0-51.0); MEAN CORPUSCULAR HEMOGLOBIN 30.4 pg (27.0-34.0); MEAN CORPUSCULAR HGB CONC 33.8 g/dL (33.0-35.0); MEAN CORPUSCULAR VOLUME 89.9 fL (80.0-100.0); MEAN PLATELET VOLUME 8.3 fL (7.4-11.0); MONOCYTES # (AUTO) 1.4 x10^3/uL (0.3-0.8); MONOCYTES % (AUTO) 16.2 % (0.0-13.0); NEUTROPHILS # (AUTO) 4.8 x10^3/uL (2.2-4.8); NEUTROPHILS % (AUTO) 55.7 % (42.0-75.0); PLATELET COUNT 302 X10^3/uL (150.0-450.0); RED BLOOD COUNT 4.21 X10^6/uL (3.5-5.4); RED CELL DISTRIBUTION WIDTH 15.2 % (11.6-16.5); WHITE BLOOD COUNT 8.7 X10^3/uL (3.6-10.0)
[2017-11-29 06:39] LABS: ALANINE AMINOTRANSFERASE 56 Units/L (12-78); ALBUMIN 2.8 g/dL (3.4-5.0); ALKALINE PHOSPHATASE 100 Units/L (46-116); ASPARTATE AMINO TRANSFERASE 38 Units/L (15-37); BLOOD UREA NITROGEN 12 mg/dL (7-18); CALCIUM 8.8 mg/dL (8.5-10.1); CARBON DIOXIDE 26.5 mmol/L (21-32); CHLORIDE 105 mmol/L (98-107); COR CA(FOR HYPOALB) 9.8 mg/dL (8.5-10.1); CREATININE 0.79 mg/dL (0.55-1.02); SODIUM 139 mmol/L (136-145); TOTAL PROTEIN 6.6 g/dL (6.4-8.2); eGFR NON BLACK RACES > 60 (>60)
[2017-11-29] MEDS: CIPRO IV 400 MG PREMIX* 400 MG/200 ML IV.SOLN. IV SCH ×2 (09:11→21:30)
[2017-11-29] MEDS: LOPRESSOR TAB 25 MG PO SCH ×2 (09:11→21:30)
[2017-11-29] MEDS: TIMOPTIC 0.5% EYE DROPS EACHEYE SCH ×2 (09:12→22:07)
[2017-11-29] MEDS ORDERED: CITROMA PO ONE (11:01)
[2017-11-29] MEDS ORDERED: COLACE CAP 100 MG PO ONE (11:01)
[2017-11-29] MEDS: REQUIP PO SCH ×2 (11:47→22:07)
[2017-11-29] MEDS: ZOFRAN INJ 4 MG VIAL IVP PRN ×2 (11:48→17:24)
[2017-11-29] MEDS: NS 1000 ML 1,000 ML IV SCH (15:25)
[2017-11-29 15:55] LABS: STOOL FOR WBC NEGATIVE (NEGATIVE)
[2017-11-29] MEDS: XALATAN EACHEYE SCH (22:07)
[2017-11-30] MEDS: DEMEROL INJ IVP PRN ×4 (03:40→17:53)
[2017-11-30 06:12] LABS: BASOPHILS % (AUTO) 0.3 % (0.2-1.0); EOSINOPHILS # (AUTO) 0.1 x10^3/uL (0.0-0.2); EOSINOPHILS % (AUTO) 1.7 % (0.9-2.9); HEMATOCRIT 37.1 % (36.0-47.0); HEMOGLOBIN 12.7 g/dL (12.0-16.0); LYMPHOCYTES # (AUTO) 1.8 X10^3/uL (1.3-2.9); LYMPHOCYTES % (AUTO) 24.6 % (21.0-51.0); MEAN CORPUSCULAR HEMOGLOBIN 30.8 pg (27.0-34.0); MEAN CORPUSCULAR HGB CONC 34.2 g/dL (33.0-35.0); MEAN CORPUSCULAR VOLUME 90.3 fL (80.0-100.0); MEAN PLATELET VOLUME 8.2 fL (7.4-11.0); MONOCYTES % (AUTO) 13.6 % (0.0-13.0); NEUTROPHILS # (AUTO) 4.5 x10^3/uL (2.2-4.8); NEUTROPHILS % (AUTO) 59.8 % (42.0-75.0); PLATELET COUNT 289 X10^3/uL (150.0-450.0); RED BLOOD COUNT 4.11 X10^6/uL (3.5-5.4); RED CELL DISTRIBUTION WIDTH 14.9 % (11.6-16.5); WHITE BLOOD COUNT 7.5 X10^3/uL (3.6-10.0)
[2017-11-30 06:25] LABS: BLOOD UREA NITROGEN 9 mg/dL (7-18); CALCIUM 9.2 mg/dL (8.5-10.1); CARBON DIOXIDE 28.8 mmol/L (21-32); CHLORIDE 103 mmol/L (98-107); COR NA(FOR HYPERGLY) 138 mmol/L (136-145); CREATININE 0.75 mg/dL (0.55-1.02); SODIUM 138 mmol/L (136-145); eGFR NON BLACK RACES > 60 (>60)
[2017-11-30] MEDS: CIPRO IV 400 MG PREMIX* 400 MG/200 ML IV.SOLN. IV SCH ×2 (09:15→21:29)
[2017-11-30] MEDS: REQUIP PO SCH ×2 (09:16→21:29)
[2017-11-30] MEDS: TIMOPTIC 0.5% EYE DROPS EACHEYE SCH ×2 (09:16→21:29)
[2017-11-30] MEDS: LOPRESSOR TAB 25 MG PO SCH ×2 (09:16→21:29)
[2017-11-30] MEDS: NS 1000 ML 1,000 ML IV SCH ×3 (11:25→15:24)
[2017-11-30] MEDS: ZOFRAN INJ 4 MG VIAL IVP PRN (12:52)
--- NOTE | 2017-11-30 20:03 | US ---
RIGHT UPPER QUADRANT ULTRASOUND HISTORY: Right upper quadrant pain and elevated transaminases Comparison: None Technique: Multiple medina scale and color flow Doppler images of the right upper quadrant were obtaine d. Findings: Overall study is limited by overlying bowel gas. The liver is markedly hyperechoic. No focal mass. N o intrahepatic bile duct dilatation. No gallstones. No pericholecystic fluid or gallbladder wall thic kening. Reportedly is positive sonographic Quinn sign. The common bile duct measures 4 mm. The right kidney measures 10.6 cm. No hydronephrosis or renal masses. The pancreas is obscured by o verlying bowel gas. IMPRESSION: 1. Liver is markedly hyperechoic consistent with hepatic steatosis. 2. Reportedly positive sonographic Quinn sign. Correlate with physical examination as there are no u ltrasound findings of acute cholecystitis. Reported By:
[2017-11-30] MEDS: XALATAN EACHEYE SCH (21:29)
[2017-11-30] MEDS: NORCO 10/325 TAB PO PRN (21:30)
[2017-11-30] MEDS ORDERED: CIPRO TAB 500 MG PO ONE (21:44)
[2017-12-01] MEDS: NORCO 10/325 TAB PO PRN ×3 (03:29→22:18)
[2017-12-01] MEDS: NS 1000 ML 1,000 ML IV SCH ×2 (05:39→19:42)
[2017-12-01] MEDS: TIMOPTIC 0.5% EYE DROPS EACHEYE SCH ×2 (07:59→21:18)
[2017-12-01] MEDS: LOPRESSOR TAB 25 MG PO SCH ×2 (07:59→21:18)
[2017-12-01] MEDS: REQUIP PO SCH ×2 (07:59→21:18)
[2017-12-01] MEDS ORDERED: NS 100 ML IV 100 ML IV ONE (09:25)
[2017-12-01] MEDS: DILAUDID INJ IVP PRN ×2 (10:24→17:35)
[2017-12-01] MEDS: CIPRO IV 400 MG PREMIX* 400 MG/200 ML IV.SOLN. IV SCH ×2 (10:24→21:17)
[2017-12-01] MEDS: ZOFRAN INJ 4 MG VIAL IVP PRN ×2 (11:46→17:39)
--- NOTE | 2017-12-01 12:27 | CT ---
CTA OF THE ABDOMEN AND PELVIS AND BILATERAL LOWER EXTREMITY RUNOFF WITHOUT AND WITH CONTRAST CLINICAL INDICATION: Intractable leg pain TECHNIQUE: Written informed consent was obtained. Non-gated spiral axial images of the lower thorax, abdomen, pelvis and lower extremities were obtained with nonionic intravenous contrast. 3D reconstru ctions were performed. Dose reduction techniques including Automated Exposure Control (AEC) and adjus tment of mA and kV were utlized. COMPARISON: Abdomen pelvis CT 11/27/2017 FINDINGS: VASCULAR: Abdominal Aorta: Moderate atherosclerosis without stenosis or aneurysm. Celiac [place]: No significant stenosis. Superior Mesenteric Artery: No significant stenosis. Renal Arteries: No significant stenosis. Inferior Mesenteric Artery: No significant stenosis. RIGHT PELVIS/LOWER EXTREMITY: Right Common Iliac Artery: No significant stenosis. Right Internal Iliac Artery: No significant stenosis. Right External Iliac Artery: No significant stenosis. Right Common Femoral Artery: No significant stenosis. Right Profunda Femoris Artery: No significant stenosis. Right Superficial Femoral Artery: No significant stenosis. Right Popliteal Artery: No significant stenosis. Right Anterior Tibial Artery: No significant stenosis. Crosses the ankle to supply the dorsalis pedi s artery. Right Tibioperoneal Trunk: No significant stenosis. Right Posterior Tibial Artery: No significant stenosis. Crosses the ankle to supply the plantar arch . Right Peroneal Artery: Poorly opacified. LEFT PELVIS/LOWER EXTREMITY: Left Common Iliac Artery: No significant stenosis. Left Internal Iliac Artery: No significant stenosis. Left External Iliac Artery: No significant stenosis. Left Common Femoral Artery: No significant stenosis. Left Profunda Femoris Artery: No significant stenosis. Left Superficial Femoral Artery: No significant stenosis. Left Popliteal Artery: No significant stenosis. Left Anterior Tibial Artery: Poorly opacified distally Left Tibioperoneal Trunk: No significant stenosis. Left Posterior Tibial Artery: Poorly opacified distally. Left Peroneal Artery: Poorly opacified. Abdomen without: No gallstones, renal stones or proximal ureteral stones. Abdomen with: Liver and spleen are normal in size, enhancement characteristics and contour. No focal lesions. The portal vein is patent. No ductal dilitation. Gallbladder is present. No gallbladder wall thickening. The pancreas is unremarkable. Adrenal glands are normal. Kidneys enhance symmetrically w ithout hydronephrosis. No bowel obstruction or inflammation. Severe diverticulosis without focal inflammation. No abnormal a ppearing mesenteric or retroperitoneal lymph nodes. No free fluid or fluid collections. Pelvis without: No distal ureteral stones or bladder stones. Pelvis with: The bladder is normal in appearance. Uterus not well seen. No free fluid or abnormal pe lvic lymph nodes. No aggressive osseous lesions. IMPRESSION: 1. Poor opacification of the distal arteries of the left lower extremity as above. No abrupt cut off. Reported By:
[2017-12-01] MEDS ORDERED: MAALOX or MYLANTA PO PRN (15:27)
--- NOTE | 2017-12-01 17:30 | PCM.PROG ---
Progress Note - Progress Note for Day of Date: 12/01/17 - Subjective Subjective: 77 WF ADMITTED ON 11/25 WITH ABDOMINAL PAIN, FEVER AND UTI. PT CONTINUES TO CO RIGHT SIDE ABDOMINAL PAIN. PT HAD CT ABD ON ADMISSION. PT CURRENTLY ON IV ATBX. PT RECEIVING GENTLE HYDRATION. PT CO NAUSEA AND HAD ABNORMAL LIVER US. PT SET UP FOR HIDA SCAN Q AM. PT CO INTRACTABLE LOWER EXTREMITY PAIN, NOT RELIVED WITH RLS MEDICATION. PT HAS PMH OF HTN, CAD AND HYPERLIPIDEMIA. CTA OF LOWER EXTREMITIES ORDERED. - Past Medical Family Social History Past Med/Fam/Surg Hx: No changes since H&P Allergies: Allergies naloxone Allergy (Verified 04/17/17 16:02) pentazocine Allergy (Verified 04/17/17 16:02) Sulfa (Sulfonamide Antibiotics) [SULFA] Allergy (Verified 04/17/17 16:02) - Review of Systems ROS: No change since H&P - Vital Signs and I&O's Vital Signs: Temperature 97.9 F Pulse Rate [Right Radial] 60 Respiratory Rate 17 Blood Pressure [Left Arm] 148/72 Blood Pressure [Right Arm] 135/73 Blood Pressure 124/65 O2 Sat by Pulse Oximetry 95 Intake and Output: Intake & Output 11/29/17 11/30/17 12/01/17 12/02/17 11:59 11:59 11:59 11:59 Intake Total 2210 / 2210 3522 / 3522 2830 / 2830 1344 / 1344 Output Total 2450 / 2450 Balance -240 / -240 3522 / 3522 2830 / 2830 1344 / 1344 - Physical Exam Oriented: Normal Eyes: Normal Ear: Normal Nose: Normal Throat: Normal Respiratory: Normal Cardiovascular: Normal : Normal Auscultation: Bowel Sounds: Normal Tenderness: Diffuse, RUQ, RLQ, Epigastric Skin: Normal Musculoskeletal: Right, Left, Leg, Back:Thoracic, Tender Psychiatric: Anxiety Speech Pattern: Clear, Appropriate - Laboratory and Diagnostics Result Diagrams: 11/30/17 04:55 11/30/17 04:55 Labs: 11/29/17 15:11 Stool Stool Culture - Final 11/29/17 15:11 Stool - Final 11/27/17 17:47 Urine,Clean Catch Urine Culture - Final Laboratory WBC 7.5 X10^3/uL (3.6-10.0) 11/30/17 04:55 RBC 4.11 X10^6/uL (3.5-5.4) 11/30/17 04:55 Hgb 12.7 g/dL (12.0-16.0) 11/30/17 04:55 Hct 37.1 % (36.0-47.0) 11/30/17 04:55 MCV 90.3 fL (80.0-100.0) 11/30/17 04:55 MCH 30.8 pg (27.0-34.0) 11/30/17 04:55 MCHC 34.2 g/dL (33.0-35.0) 11/30/17 04:55 RDW 14.9 % (11.6-16.5) 11/30/17 04:55 Plt Count 289 X10^3/uL (150.0-450.0) 11/30/17 04:55 MPV 8.2 fL (7.4-11.0) 11/30/17 04:55 Neut % (Auto) 59.8 % (42.0-75.0) 11/30/17 04:55 Lymph % (Auto) 24.6 % (21.0-51.0) 11/30/17 04:55 [place] % (Auto) 13.6 % (0.0-13.0) H 11/30/17 04:55 Eos % (Auto) 1.7 % (0.9-2.9) 11/30/17 04:55 Baso % (Auto) 0.3 % (0.2-1.0) 11/30/17 04:55 Neut # (Auto) 4.5 x10^3/uL (2.2-4.8) 11/30/17 04:55 Lymph # (Auto) 1.8 X10^3/uL (1.3-2.9) 11/30/17 04:55 [place] # (Auto) 1.0 x10^3/uL (0.3-0.8) H 11/30/17 04:55 Eos # (Auto) 0.1 x10^3/uL (0.0-0.2) 11/30/17 04:55 Baso # (Auto) 0.0 X10^3/uL (0.0-0.1) 11/30/17 04:55 Absolute Nucleated RBC 0.0 /100WBC 11/30/17 04:55 Sodium 138 mmol/L (136-145) 11/30/17 04:55 Corrected Sodium 138 mmol/L (136-145) 11/30/17 04:55 Potassium 4.2 mmol/L (3.5-5.1) 11/30/17 04:55 Chloride 103 mmol/L (98-107) 11/30/17 04:55 Carbon Dioxide 28.8 mmol/L (21-32) 11/30/17 04:55 BUN 9 mg/dL (7-18) 11/30/17 04:55 Creatinine 0.75 mg/dL (0.55-1.02) 11/30/17 04:55 Est GFR (MDRD) Af Amer > 60 (>60) 11/30/17 04:55 Est GFR (MDRD) Non-Af > 60 (>60) 11/30/17 04:55 Glucose 116 mg/dL (65-99) H 11/30/17 04:55 Calcium 9.2 mg/dL (8.5-10.1) 11/30/17 04:55 Corrected Calcium 9.8 mg/dL (8.5-10.1) 11/29/17 05:22 Magnesium 1.9 mg/dL (1.7-2.9) 12/01/17 09:11 Total Bilirubin 0.60 mg/dL (0.2-1.0) 11/29/17 05:22 AST 38 Units/L (15-37) H 11/29/17 05:22 ALT 56 Units/L (12-78) 11/29/17 05:22 Alkaline Phosphatase 100 Units/L (46-116) 11/29/17 05:22 Total Protein 6.6 g/dL (6.4-8.2) 11/29/17 05:22 Albumin 2.8 g/dL (3.4-5.0) L 11/29/17 05:22 Globulin 3.8 g/dL (2.5-4.5) 11/29/17 05:22 Albumin/Globulin Ratio 0.7 Ratio (1.1-2.1) L 11/29/17 05:22 Specimen Type Clean catch urine 11/27/17 17:47 Urine Color Yellow (YELLOW) 11/27/17 17:47 Urine Appearance Clear (CLEAR) 11/27/17 17:47 Urine pH 6.0 (5.0 - 8.0) 11/27/17 17:47 Ur Specific [place] 1.010 (1.000-1.030) 11/27/17 17:47 Urine Protein Negative (NEGATIVE) 11/27/17 17:47 Urine Glucose (UA) Negative (NEGATIVE) 11/27/17 17:47 Urine Ketones Negative (NEGATIVE) 11/27/17 17:47 Urine Occult Blood 1+ (NEGATIVE) 11/27/17 17:47 Urine Nitrite Negative (NEGATIVE) 11/27/17 17:47 Urine Bilirubin Negative (NEGATIVE) 11/27/17 17:47 Urine Urobilinogen Normal (NORMAL) 11/27/17 17:47 Ur Leukocyte Esterase Negative (NEGATIVE) 11/27/17 17:47 Urine RBC 0-2 /HPF (NONE SEEN) 11/27/17 17:47 Urine WBC 0-2 /HPF (NONE SEEN) 11/27/17 17:47 Ur Squamous Epith Cells Moderate /HPF (NEGATIVE) 11/27/17 17:47 Urine Bacteria Trace /HPF (NEGATIVE) 11/27/17 17:47 Urine Mucus Few /HPF (NEGATIVE) 11/27/17 17:47 Ur Culture Indicated? No/not indicated 11/27/17 17:47 Stool Description 75 brown loose 11/29/17 15:11 Stl Occult Blood (IFOB) Negative (NEGATIVE) 11/29/17 15:11 Stool for White Cells Negative (NEGATIVE) 11/29/17 15:11 Stl C. diff Tox B Gene Negative (NEGATIVE) 11/29/17 15:11 Stl C. diff 027-NAP1-BI Negative (NEGATIVE) 11/29/17 15:11 - Plan (1) Abdominal pain Status: Acute Plan: AM LABS UA/UC. IV ATBX, CT ABD PELVIS ON ADMISSION, PAIN AND NAUSEA CONTROL. LIVER US COMPLETED, NPO Q AM FOR HIDA SCAN. CONTINUE PAIN CONTROL (2) Fever Status: Acute (3) UTI (urinary tract infection) Status: Acute (4) CAD (coronary artery disease) Status: Acute (5) Hypertension Status: Acute (6) Abnormal LFTs Status: Acute (7) RUQ pain Status: Acute Plan: HIDA SCAN, REPEAT AM LABS (8) Intractable neuropathic pain of lower extremity Status: Acute Plan: PAIN CONTROL, ASA. BP AND LIPID CONTROL, CTA LOWER EXTREMITIES
[2017-12-01] MEDS ORDERED: ECOTRIN TAB 325 MG PO SCH (18:00)
[2017-12-01] MEDS ORDERED: PHENERGAN INJ 25 MG IV PRN (20:46)
[2017-12-01] MEDS: XALATAN EACHEYE SCH (22:18)
[2017-12-02] MEDS: NS 1000 ML 1,000 ML IV SCH ×3 (00:35→09:39)
[2017-12-02] MEDS: ZOFRAN INJ 4 MG VIAL IVP PRN ×2 (03:56→09:39)
[2017-12-02 05:48] LABS: ALANINE AMINOTRANSFERASE 46 Units/L (12-78); ALBUMIN 2.9 g/dL (3.4-5.0); ALKALINE PHOSPHATASE 87 Units/L (46-116); ASPARTATE AMINO TRANSFERASE 30 Units/L (15-37); BLOOD UREA NITROGEN 11 mg/dL (7-18); CALCIUM 9.1 mg/dL (8.5-10.1); CARBON DIOXIDE 30.3 mmol/L (21-32); CHLORIDE 106 mmol/L (98-107); CREATININE 0.74 mg/dL (0.55-1.02); SODIUM 142 mmol/L (136-145); eGFR NON BLACK RACES > 60 (>60)
[2017-12-02 06:13] LABS: BASOPHILS % (AUTO) 0.5 % (0.2-1.0); EOSINOPHILS # (AUTO) 0.1 x10^3/uL (0.0-0.2); EOSINOPHILS % (AUTO) 1.9 % (0.9-2.9); HEMATOCRIT 39.4 % (36.0-47.0); HEMOGLOBIN 13.3 g/dL (12.0-16.0); LYMPHOCYTES # (AUTO) 1.8 X10^3/uL (1.3-2.9); LYMPHOCYTES % (AUTO) 23.2 % (21.0-51.0); MEAN CORPUSCULAR HEMOGLOBIN 30.8 pg (27.0-34.0); MEAN CORPUSCULAR HGB CONC 33.8 g/dL (33.0-35.0); MEAN PLATELET VOLUME 8.4 fL (7.4-11.0); MONOCYTES # (AUTO) 0.9 x10^3/uL (0.3-0.8); MONOCYTES % (AUTO) 11.3 % (0.0-13.0); NEUTROPHILS # (AUTO) 4.8 x10^3/uL (2.2-4.8); NEUTROPHILS % (AUTO) 63.1 % (42.0-75.0); PLATELET COUNT 317 X10^3/uL (150.0-450.0); RED BLOOD COUNT 4.33 X10^6/uL (3.5-5.4); WHITE BLOOD COUNT 7.7 X10^3/uL (3.6-10.0)
[2017-12-02] MEDS: LOPRESSOR TAB 25 MG PO SCH ×2 (08:27→21:18)
[2017-12-02] MEDS: REQUIP PO SCH ×2 (08:27→21:18)
[2017-12-02] MEDS: CIPRO IV 400 MG PREMIX* 400 MG/200 ML IV.SOLN. IV SCH ×2 (08:27→21:18)
[2017-12-02] MEDS: TIMOPTIC 0.5% EYE DROPS EACHEYE SCH ×2 (08:28→21:18)
[2017-12-02] MEDS ORDERED: DIPRIVAN VIAL ONE (11:03)
[2017-12-02] MEDS ORDERED: XYLOCAINE 1 % (PLAIN) ONE (11:03)
[2017-12-02] MEDS ORDERED: ROBINUL ONE (11:03)
[2017-12-02] MEDS ORDERED: NORCURON INJ 10 MG VIAL ONE (11:03)
[2017-12-02] MEDS ORDERED: QUELICIN (OR ANECTINE) ONE (11:03)
[2017-12-02] MEDS ORDERED: ZOFRAN INJ 4 MG VIAL ONE (11:03)
[2017-12-02] MEDS ORDERED: SUPRANE IN ONE (11:03)
[2017-12-02] MEDS ORDERED: NEOSTIGMINE INJ ONE (11:03)
--- NOTE | 2017-12-02 14:57 | NM ---
HISTORY: Right upper quadrant pain Study: Nuclear medicine HIDA scan with ejection fraction Comparison: None Technique: Multiple scintigraphic images of the abdomen were obtained the intravenous administration of 5.5 mCi of technetium labeled Choletec. Following distention of the gallbladder with radiotracer, the patient drank 8 oz of Ensure to simulat e a fatty meal. An estimated gallbladder ejection fraction was calculated based on the physiologic r esponse of this ingestion. Findings: Homogeneous uptake of radiotracer is seen throughout the liver. This intrabiliary ductal system is o bserved normally. The common hepatic and common bile duct grossly appear unremarkable with normal bi liary-bowel transit. The gallbladder is observed to fill normally. After the patient drank Ensure, a gallbladder ejection fraction of 8.9% (normal > 35%) is observed. IMPRESSION: 1. Normal hepatobiliary imaging scan. 2. Gallbladder hypokinesia, with an ejection fraction of 9%. Reported By:
[2017-12-02] MEDS ORDERED: LR 1000 ML IV 1,000 ML IV ONE (15:40)
--- NOTE | 2017-12-02 16:01 | RAD ---
HISTORY: Preop for cholecystectomy Study: Single-view chest, done portably and semi upright. Comparison: 04/17/2017. Findings: Trachea is midline. The heart size is normal with aortic uncoiling. There is calcification of the kaila ral valve annulus. The lungs and pleural spaces are clear. Osseous structures are intact. IMPRESSION: No acute cardiopulmonary disease. Reported By:
[2017-12-02] MEDS ORDERED: DILAUDID INJ IVP PRN (16:11)
[2017-12-02] MEDS ORDERED: REGLAN INJ 10 MG VIAL IVP PRN (16:11)
[2017-12-02] MEDS ORDERED: BENADRYL INJ 50 MG VIAL IVP PRN (16:11)
[2017-12-02] MEDS ORDERED: PHENERGAN INJ 25 MG IVP PRN (16:11)
[2017-12-02] MEDS ORDERED: ZOFRAN INJ 4 MG VIAL IVP PRN ×2 (16:11→17:22)
[2017-12-02] MEDS ORDERED: FENTANYL INJ 250 mcg ONE (16:26)
[2017-12-02] MEDS ORDERED: DILAUDID INJ ONE (17:21)
[2017-12-02] MEDS ORDERED: PHENERGAN INJ 25 MG ONE (17:29)
--- NOTE | 2017-12-02 17:43 | OR.GENERIC ---
Post-Op Note Generic - Post-Op Note Operative Report: diagnostic laparoscopy and Lap monica was done . finding : distended GB and mid abdominal amd pelvic adhesions diverticulosis . Pt did well . EBL 10 cc. on clear liquid today , and Low fat diet in am . will follow in 10 days .
--- NOTE | 2017-12-02 18:05 | PCM.PROG ---
Progress Note - Progress Note for Day of Date: 12/02/17 - Subjective Subjective: 77 WF ADMITTED ON 11/25 WITH ABDOMINAL PAIN, FEVER AND UTI. PT CONTINUES TO CO RIGHT SIDE ABDOMINAL PAIN. PT HAD CT ABD ON ADMISSION. PT CURRENTLY ON IV ATBX. PT RECEIVING GENTLE HYDRATION. PT CO NAUSEA AND HAD ABNORMAL LIVER US. PT SET UP FOR HIDA SCAN THIS AM, EKG AND CXR ORDERED. IF ABNORMAL HIDA WITH COSULT DR MORALES FOR LAP HAMIDA, KEEP PT NPO - Past Medical Family Social History Past Med/Fam/Surg Hx: No changes since H&P Allergies: Allergies naloxone Allergy (Verified 04/17/17 16:02) pentazocine Allergy (Verified 04/17/17 16:02) Sulfa (Sulfonamide Antibiotics) [SULFA] Allergy (Verified 04/17/17 16:02) - Review of Systems ROS: No change since H&P - Vital Signs and I&O's Vital Signs: Temperature 98.2 F Pulse Rate [Right Radial] 61 Pulse Rate 61 Respiratory Rate 16 Blood Pressure [Left Arm] 130/70 Blood Pressure [Right Arm] 135/73 Blood Pressure 167/86 O2 Sat by Pulse Oximetry 99 Intake and Output: Intake & Output 11/30/17 12/01/17 12/02/17 12/03/17 11:59 11:59 11:59 11:59 Intake Total 3522 / 3522 2830 / 2830 2400 / 2400 2080 / 2080 Output Total 1310 / 1310 Balance 3522 / 3522 2830 / 2830 2400 / 2400 770 / 770 - Physical Exam Oriented: Normal Eyes: Normal Ear: Normal Nose: Normal Throat: Normal Respiratory: Normal Cardiovascular: Normal : Normal Auscultation: Bowel Sounds: Normal Tenderness: Diffuse, RUQ, RLQ, Epigastric Skin: Normal Musculoskeletal: Right, Left, Leg, Back:Thoracic, Tender Psychiatric: Anxiety Mood Description: Calm Speech Pattern: Clear, Appropriate - Laboratory and Diagnostics Result Diagrams: 12/02/17 05:15 12/02/17 05:15 Labs: 11/29/17 15:11 Stool Stool Culture - Final 11/29/17 15:11 Stool - Final 11/27/17 17:47 Urine,Clean Catch Urine Culture - Final Laboratory WBC 7.7 X10^3/uL (3.6-10.0) 12/02/17 05:15 RBC 4.33 X10^6/uL (3.5-5.4) 12/02/17 05:15 Hgb 13.3 g/dL (12.0-16.0) 12/02/17 05:15 Hct 39.4 % (36.0-47.0) 12/02/17 05:15 MCV 91.0 fL (80.0-100.0) 12/02/17 05:15 MCH 30.8 pg (27.0-34.0) 12/02/17 05:15 MCHC 33.8 g/dL (33.0-35.0) 12/02/17 05:15 RDW 15.0 % (11.6-16.5) 12/02/17 05:15 Plt Count 317 X10^3/uL (150.0-450.0) 12/02/17 05:15 MPV 8.4 fL (7.4-11.0) 12/02/17 05:15 Neut % (Auto) 63.1 % (42.0-75.0) 12/02/17 05:15 Lymph % (Auto) 23.2 % (21.0-51.0) 12/02/17 05:15 [place] % (Auto) 11.3 % (0.0-13.0) 12/02/17 05:15 Eos % (Auto) 1.9 % (0.9-2.9) 12/02/17 05:15 Baso % (Auto) 0.5 % (0.2-1.0) 12/02/17 05:15 Neut # (Auto) 4.8 x10^3/uL (2.2-4.8) 12/02/17 05:15 Lymph # (Auto) 1.8 X10^3/uL (1.3-2.9) 12/02/17 05:15 [place] # (Auto) 0.9 x10^3/uL (0.3-0.8) H 12/02/17 05:15 Eos # (Auto) 0.1 x10^3/uL (0.0-0.2) 12/02/17 05:15 Baso # (Auto) 0.0 X10^3/uL (0.0-0.1) 12/02/17 05:15 Absolute Nucleated RBC 0.1 /100WBC 12/02/17 05:15 Sodium 142 mmol/L (136-145) 12/02/17 05:15 Corrected Sodium TNP 12/02/17 05:15 Potassium 4.3 mmol/L (3.5-5.1) 12/02/17 05:15 Chloride 106 mmol/L (98-107) 12/02/17 05:15 Carbon Dioxide 30.3 mmol/L (21-32) 12/02/17 05:15 BUN 11 mg/dL (7-18) 12/02/17 05:15 Creatinine 0.74 mg/dL (0.55-1.02) 12/02/17 05:15 Est GFR (MDRD) Af Amer > 60 (>60) 12/02/17 05:15 Est GFR (MDRD) Non-Af > 60 (>60) 12/02/17 05:15 Glucose 101 mg/dL (65-99) H 12/02/17 05:15 Calcium 9.1 mg/dL (8.5-10.1) 12/02/17 05:15 Corrected Calcium 10.0 mg/dL (8.5-10.1) 12/02/17 05:15 Magnesium 1.9 mg/dL (1.7-2.9) 12/01/17 09:11 Total Bilirubin 0.50 mg/dL (0.2-1.0) 12/02/17 05:15 AST 30 Units/L (15-37) 12/02/17 05:15 ALT 46 Units/L (12-78) 12/02/17 05:15 Alkaline Phosphatase 87 Units/L (46-116) 12/02/17 05:15 Total Protein 7.0 g/dL (6.4-8.2) 12/02/17 05:15 Albumin 2.9 g/dL (3.4-5.0) L 12/02/17 05:15 Globulin 4.1 g/dL (2.5-4.5) 12/02/17 05:15 Albumin/Globulin Ratio 0.7 Ratio (1.1-2.1) L 12/02/17 05:15 Specimen Type Clean catch urine 11/27/17 17:47 Urine Color Yellow (YELLOW) 11/27/17 17:47 Urine Appearance Clear (CLEAR) 11/27/17 17:47 Urine pH 6.0 (5.0 - 8.0) 11/27/17 17:47 Ur Specific [place] 1.010 (1.000-1.030) 11/27/17 17:47 Urine Protein Negative (NEGATIVE) 11/27/17 17:47 Urine Glucose (UA) Negative (NEGATIVE) 11/27/17 17:47 Urine Ketones Negative (NEGATIVE) 11/27/17 17:47 Urine Occult Blood 1+ (NEGATIVE) 11/27/17 17:47 Urine Nitrite Negative (NEGATIVE) 11/27/17 17:47 Urine Bilirubin Negative (NEGATIVE) 11/27/17 17:47 Urine Urobilinogen Normal (NORMAL) 11/27/17 17:47 Ur Leukocyte Esterase Negative (NEGATIVE) 11/27/17 17:47 Urine RBC 0-2 /HPF (NONE SEEN) 11/27/17 17:47 Urine WBC 0-2 /HPF (NONE SEEN) 11/27/17 17:47 Ur Squamous Epith Cells Moderate /HPF (NEGATIVE) 11/27/17 17:47 Urine Bacteria Trace /HPF (NEGATIVE) 11/27/17 17:47 Urine Mucus Few /HPF (NEGATIVE) 11/27/17 17:47 Ur Culture Indicated? No/not indicated 11/27/17 17:47 Stool Description 75 brown loose 11/29/17 15:11 Stl Occult Blood (IFOB) Negative (NEGATIVE) 11/29/17 15:11 Stool for White Cells Negative (NEGATIVE) 11/29/17 15:11 Stl C. diff Tox B Gene Negative (NEGATIVE) 11/29/17 15:11 Stl C. diff 027-NAP1-BI Negative (NEGATIVE) 11/29/17 15:11 - Plan (1) Abdominal pain Status: Acute Plan: AM LABS UA/UC. IV ATBX, CT ABD PELVIS ON ADMISSION, PAIN AND NAUSEA CONTROL. LIVER US COMPLETED, NPO Q AM FOR HIDA SCAN. CONTINUE PAIN CONTROL (2) Fever Status: Acute (3) UTI (urinary tract infection) Status: Acute (4) CAD (coronary artery disease) Status: Acute (5) Hypertension Status: Acute (6) Abnormal LFTs Status: Acute (7) RUQ pain Status: Acute Plan: HIDA SCAN, REPEAT AM LABS (8) Intractable neuropathic pain of lower extremity Status: Acute Plan: PAIN CONTROL, ASA. BP AND LIPID CONTROL, CTA LOWER EXTREMITIES
--- NOTE | 2017-12-02 18:06 | DR.ADDEND ---
Addendum - Addendum Addendum: PROGRESS NOTE 12/02/2017 ASSESSMENT AND PLAN BILIARY DYSKENESIA: CONSULT DR MORALES FOR LAP HAMIDA, EKF AND CXR ON CHART KEEP PT NPO
[2017-12-02] MEDS: D5 1/2 NS 1000 ML 1,000 ML IV SCH (18:37)
[2017-12-02 18:41] LABS: ALANINE AMINOTRANSFERASE 58 Units/L (12-78); ALBUMIN 3.3 g/dL (3.4-5.0); ALKALINE PHOSPHATASE 98 Units/L (46-116); ASPARTATE AMINO TRANSFERASE 59 Units/L (15-37); BLOOD UREA NITROGEN 10 mg/dL (7-18); CALCIUM 9.6 mg/dL (8.5-10.1); CARBON DIOXIDE 31.2 mmol/L (21-32); CHLORIDE 104 mmol/L (98-107); COR CA(FOR HYPOALB) 10.2 mg/dL (8.5-10.1); CREATININE 0.72 mg/dL (0.55-1.02); SODIUM 142 mmol/L (136-145); TOTAL PROTEIN 7.6 g/dL (6.4-8.2); eGFR NON BLACK RACES > 60 (>60)
[2017-12-02] MEDS: XALATAN EACHEYE SCH (21:18)
[2017-12-03] MEDS: NS 1000 ML 1,000 ML IV SCH (02:03)
[2017-12-03] MEDS: D5 1/2 NS 1000 ML 1,000 ML IV SCH ×2 (02:04→11:22)
[2017-12-03 05:48] LABS: BASOPHILS % (AUTO) 0.6 % (0.2-1.0); EOSINOPHILS # (AUTO) 0.1 x10^3/uL (0.0-0.2); EOSINOPHILS % (AUTO) 0.7 % (0.9-2.9); HEMATOCRIT 38.7 % (36.0-47.0); LYMPHOCYTES # (AUTO) 1.8 X10^3/uL (1.3-2.9); LYMPHOCYTES % (AUTO) 22.2 % (21.0-51.0); MEAN CORPUSCULAR HEMOGLOBIN 30.4 pg (27.0-34.0); MEAN CORPUSCULAR HGB CONC 33.6 g/dL (33.0-35.0); MEAN CORPUSCULAR VOLUME 90.4 fL (80.0-100.0); MEAN PLATELET VOLUME 8.3 fL (7.4-11.0); MONOCYTES % (AUTO) 12.9 % (0.0-13.0); NEUTROPHILS # (AUTO) 5.1 x10^3/uL (2.2-4.8); NEUTROPHILS % (AUTO) 63.6 % (42.0-75.0); PLATELET COUNT 299 X10^3/uL (150.0-450.0); RED BLOOD COUNT 4.28 X10^6/uL (3.5-5.4)
[2017-12-03 05:52] LABS: ALANINE AMINOTRANSFERASE 58 Units/L (12-78); ALBUMIN 2.7 g/dL (3.4-5.0); ALKALINE PHOSPHATASE 84 Units/L (46-116); ASPARTATE AMINO TRANSFERASE 54 Units/L (15-37); BLOOD UREA NITROGEN 8 mg/dL (7-18); CALCIUM 9.3 mg/dL (8.5-10.1); CHLORIDE 105 mmol/L (98-107); COR CA(FOR HYPOALB) 10.3 mg/dL (8.5-10.1); COR NA(FOR HYPERGLY) 141 mmol/L (136-145); CREATININE 0.71 mg/dL (0.55-1.02); SODIUM 140 mmol/L (136-145); TOTAL PROTEIN 6.5 g/dL (6.4-8.2); eGFR NON BLACK RACES > 60 (>60)
[2017-12-03] MEDS: CIPRO IV 400 MG PREMIX* 400 MG/200 ML IV.SOLN. IV SCH (09:01)
[2017-12-03] MEDS: REQUIP PO SCH (09:01)
[2017-12-03] MEDS: LOPRESSOR TAB 25 MG PO SCH (09:02)
[2017-12-03] MEDS: TIMOPTIC 0.5% EYE DROPS EACHEYE SCH (09:03)
[2017-12-03] MEDS: NORCO 10/325 TAB PO PRN (11:30)
[2017-12-03 12:14] VITALS: BP 141/68
== END 2017-12-03 12:45 | disposition home or self-care (01) | DRG 690 ==
LOC: MED/SURG 15:59 → INTOOBSV 15:59
PROVIDERS: ADMIT Internal Medicine; ATTEND Internal Medicine
DX: L20.81 Atopic neurodermatitis; K82.8 Other specified diseases of gallbladder; K21.9 Gastro-esophageal reflux disease without esophagitis; G57.90 Unspecified mononeuropathy of unspecified lower limb; K66.0 Peritoneal adhesions (postprocedural) (postinfection); I25.10 Atherosclerotic heart disease of native coronary artery without angina pectoris; R10.84 Generalized abdominal pain; M19.90 Unspecified osteoarthritis, unspecified site; Z87.442 Personal history of urinary calculi; N20.0 Calculus of kidney; N39.0 Urinary tract infection, site not specified; K90.49 Malabsorption due to intolerance, not elsewhere classified; I10 Essential (primary) hypertension
CPT/HCPCS: 36415; 71010; 71045; 73706; 74177; 76705; 78227; 80048; 80053; 81001; 82270; 83630; 83735; 85025; 87045; 87086; 87427; 87449; 87493; 87899; 93005; 93010; 94760; 99100; A4216; A4222; A9537; G0378; J0330; J0744; J1170; J2175; J2270; J2405; J2550; J2704; J2710; J3010; J3490; J7030; J7050; J7120; S5010

== ENCOUNTER 2023-08-10 23:27 | Inpatient (IN) ==
[2023-08-10] MEDS ORDERED: APRESOLINE INJ 20 MG VIAL ONE (23:41)
--- NOTE | 2023-08-10 23:53 | EKG ---
Test Reason : Stroke workup Blood Pressure : */* mmHG Vent. Rate : 81 BPM Atrial Rate : 81 BPM P-R Int : 192 ms QRS Dur : 82 ms QT Int : 384 ms P-R-T Axes : 39 -31 -4 degrees QTc Int : 446 ms Normal sinus rhythm Left axis deviation Low voltage QRS Abnormal ECG No previous ECGs available Confirmed by Atul Lemons MD ([id number]) on 08/11/2023 7:36:07 AM Referred By: Confirmed By: Atul Lemons MD
[2023-08-11] LABS: BASOPHILS % (AUTO) 0.4 % (0.2-1.0); EOSINOPHILS # (AUTO) 0.3 x10^3/uL (0.0-0.2); EOSINOPHILS % (AUTO) 3.5 % (0.9-2.9); HEMATOCRIT 45.2 % (36.0-47.0); HEMOGLOBIN 14.9 g/dL (12.0-16.0); LYMPHOCYTES # (AUTO) 2.1 X10^3/uL (1.3-2.9); LYMPHOCYTES % (AUTO) 22.8 % (21.0-51.0); MEAN CORPUSCULAR HEMOGLOBIN 29.8 pg (27.0-34.0); MEAN CORPUSCULAR HGB CONC 32.9 g/dL (33.0-35.0); MEAN CORPUSCULAR VOLUME 90.5 fL (80.0-100.0); MEAN PLATELET VOLUME 8.7 fL (7.4-11.0); MONOCYTES % (AUTO) 10.3 % (0.0-13.0); NEUTROPHILS # (AUTO) 5.8 x10^3/uL (2.2-4.8); PLATELET COUNT 191 X10^3/uL (150.0-450.0); RED BLOOD COUNT 4.99 X10^6/uL (3.5-5.4); RED CELL DISTRIBUTION WIDTH 14.2 % (11.6-16.5); WHITE BLOOD COUNT 9.3 X10^3/uL (3.6-10.0)
--- NOTE | 2023-08-11 00:03 | CT ---
EXAM:BRAIN W/O CONHISTORY:STROKE LIKE SYMPTOMS;COMPARISON:12/28/2019TECHNIQUE: Multiple axial images of the head were performed from the skullbase to the vertex using standard departmental protocol. Sagittal and coronal reformatted images were performed. Dose reduction techniques including Automated Exposure Control (AEC) and adjustment of mA and kV were utilized.FINDINGS:The sulci, cisterns and ventricles are age appropriate. Mild cortical atrophy compatible with patient's age. Decreased attenuation in the periventricular and subcortical white matter consistent with microvascular ischemic white matter changes. There is an area of decreased attenuation within the dayna which may represent a remote infarct versus artifact. There is no evidence of acute territorial infarction, hemorrhage, mass, mass effect or midline shift. There are no abnormal intra-axial or extra-axial fluid collections. The visualized paranasal sinuses and mastoid air cells are predominantly clear.IMPRESSION:Mild cortical atrophy with microvascular ischemic white matter changes.Remote pontine lacunar infarct versus artifact.No acute intracranial pathologyTHIS IS AN ELECTRONICALLY VERIFIED FINAL REPORT08/10/2023 11:52 PM - Electronically signed by Carlitos David MD
[2023-08-11 00:10] LABS: ALANINE AMINOTRANSFERASE 22 Units/L (12-78); ALBUMIN 3.6 g/dL (3.4-5.0); ALKALINE PHOSPHATASE 85 Units/L (46-116); ASPARTATE AMINO TRANSFERASE 15 Units/L (15-37); BLOOD UREA NITROGEN 26 mg/dL (7-18); CALCIUM 9.4 mg/dL (8.5-10.1); CARBON DIOXIDE 29.1 mmol/L (21-32); CHLORIDE 108 mmol/L (98-107); COR NA(FOR HYPERGLY) 146 mmol/L (136-145); CREATININE 0.86 mg/dL (0.55-1.02); GLUCOSE 112 mg/dL (65-99); SODIUM 146 mmol/L (136-145); TOTAL PROTEIN 7.6 g/dL (6.4-8.2); eGFR NON BLACK RACES > 60 (>60)
--- NOTE | 2023-08-11 00:12 | TELESTROKE ---
[facility] Consult Date of Consult Date of Exam: 08/11/23 Time of Arrival to the ED: 23:27 Allergies Allergies Allergy/AdvReac Type Severity Reaction Status Date / Time naloxone Allergy Verified 04/20/20 08:53 pentazocine Allergy Verified 04/20/20 08:53 Sulfa (Sulfonamide Allergy Verified 04/20/20 08:53 Antibiotics) [SULFA] Vital Signs Vital Signs: Pulse Resp BP Pulse Ox 08/10/23 23:43 80 20 169/81 96 History of Present Illness History of Present Illness: [facility] Patient Name: Belen Avila Date of : 11/28/1983 Identification Number: Date of Service: 08/10/2023 23:16:18 Diagnosis: I63.9 - Cerebrovascular accident (CVA), unspecified mechanism (HCC) R29.810 - Facial numbness/ Facial weakness R47.81 - Slurred speech Impression: 82-year-old woman with hypertension and also coronary disease currently on aspirin presenting with mild slurred speech, facial droop, isolated left facial numbness concerning for acute stroke. Risk and benefits were discussed with the patient and it was decided that we hold off on thrombolytic therapy at this time given that she had no disabling deficits. She is able to drink water without any difficulty. Very mild slurred speech and she is completely understandable. Her facial droop is a flattening of the nasolabial fold with asymmetric smile on the left. She has no other deficits to include weakness in the extremities. No receptive or expressive language difficulty with testing. Patient does understand however that she would be reevaluated for thrombolytic therapy should she have worsening symptoms within the remaining 4.5-hour treatment window. Discussed with Dr. Wilkins. Patient previously on baby aspirin 81 mg. Recommend continuing for now and Plavix load 300 mg x 1 and continue with 75 mg daily. Recommend admission for further evaluation to include neuroimaging with MRI of the brain. Consider CT angiogram of the head and neck or MRA of the head without contrast and MRA of the neck with and without contrast. Defer echocardiogram to follow-up inpatient neurology based on hospital course and also imaging findings. Recommend check lipid panel and optimize statin if LDL greater than 70, check A1c, continue with cardiac telemetry. Recommend speech therapy. Per facility request will defer further work up, management, and referrals to inpatient service, inclusive of inpatient neurology consult. I evaluated for this encounter only for stroke alert. Recommend Neurology to follow. Please reconsult if/as needed if inhouse Neurology not available. Thank you very much for allowing me to partake in this patient's care. Please note that portions of the note were completed using [employer] voice recognition software Our recommendations are outlined below. Recommendations: Stroke/Telemetry Floor Neuro Checks Bedside Swallow Eval DVT Prophylaxis IV Fluids, Normal Saline Head of Bed 30 Degrees Euglycemia and Avoid Hyperthermia (PRN Acetaminophen) Bolus with Clopidogrel 300 mg bolus x1 and initiate dual antiplatelet therapy with Aspirin 81 mg daily and Clopidogrel 75 mg daily Antihypertensives PRN if Blood pressure is greater than 220/120 or there is a concern for End organ damage/contraindications for permissive HTN. If blood pressure is greater than 220/120 give labetalol PO or IV or Vasotec IV with a goal of 15% reduction in BP during the first 24 hours. Sign Out: Discussed with Emergency Department Provider Advanced Imaging: Advanced Imaging Deferred because: Non-disabling symptoms as verified by the patient; no cortical signs so not consistent with LVO Metrics: Last Known Well: 08/10/2023 21:00:00 [facility] Notification Time: 08/10/2023 23:16:18 Arrival Time: 08/10/2023 23:27:00 Stamp Time: 08/10/2023 23:16:18 Initial Response Time: 08/10/2023 23:19:23 Symptoms: Facial droop. Initial patient interaction: 08/10/2023 23:34:32 NIHSS Assessment Completed: 08/10/2023 23:39:32 Patient is not a candidate for Thrombolytic. Thrombolytic Medical Decision: 08/10/2023 23:45:32 Patient was not deemed candidate for Thrombolytic because of following reasons: No disabling symptoms. I personally Reviewed the CT Head and it Showed neg hemorrhage or acute findings Primary Provider Notified of Diagnostic Impression and Management Plan on: 08/11/2023 00:01:09 History of Present Illness: Patient is a 39 year old Female. Patient was brought by EMS for symptoms of Facial droop. Patient is a very pleasant 82-year-old woman with a history significant for coronary disease, hypertension, kidney stones, prior stents, who presented acutely to the emergency room with facial droop and slurred speech. Patient was able to write history and noted that she had onset of symptoms at 2100. She had acute onset drooling of the mouth on the left side. She noted that when she tried to speak at that time she had significant slurred speech. She became concerned and called her daughter and EMS was called and she was brought here and evaluated as a stroke alert. Upon arrival she still had persistent facial droop along with very mild slurred speech and also facial numbness on the left. 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 She notes no visual changes that are new. She does have some difficulty with vision in the right eye already with glaucoma for which she is being treated. NIHSS was 3 for mild left facial droop with flattening of the nasolabial fold and very mild dysarthria and facial numb ness only. No numbness in the extremities. She denied any focal weakness in the upper or lower extremities. She noted that she was able to walk without any difficulty. She notes that she feels better than earlier and bedside swallow with a glass of water shows no choking and no difficulty per patient. Thrombolytic therapy was discussed with the patient to include potential bleeding and in approximately 6% of patients, in additional to potential rare and serious allergic reactions, however benefit includes improvement of outcome at 3 months in approximately a third of patients. Contraindications were reviewed with verbal history provided and were negative. However after discussion of risk and benefits with patient it was decided that her symptoms were not considered disabling and we were in agreement to hold off on any thrombolytic therapy at this time unless she has worsening symptoms. She notes taking ASA daily. Past Medical History: Hypertension Coronary Artery Disease Medications: No Anticoagulant use Antiplatelet use: Yes ASA Reviewed EMR for current medications Allergies: Reviewed Description: Naloxone, pentazocine, sulfa Social History: Drug Use: No Family History: There is no family history of premature cerebrovascular disease pertinent to th is consultation ROS : 14 Points Review of Systems was performed and was negative except mentioned in HPI. Past Surgical History: There Is No Surgical History Contributory To Todays Visit Examination: BP(184/88), Pulse(79), 1A: Level of Consciousness - Alert; keenly responsive + 0 1B: Ask Month and Age - Both Questions Right + 0 1C: Blink Eyes & Squeeze Hands - Performs Both Tasks + 0 2: Test Horizontal Extraocular Movements - Normal + 0 3: Test Visual [place] - No Visual Loss + 0 4: Test Facial Palsy (Use Grimace if Obtunded) - Minor paralysis (flat nasolabial fold, smile asymmetry) + 1 5A: Test Left Arm Motor Drift - No Drift for 10 Seconds + 0 5B: Test Right Arm Motor Drift - No Drift for 10 Seconds + 0 6A: Test Left Leg Motor Drift - No Drift for 5 Seconds + 0 6B: Test Right Leg Motor Drift - No Drift for 5 Seconds + 0 7: Test Limb Ataxia (FNF/Heel-Schuler) - No Ataxia + 0 8: Test Sensation - Mild-Moderate Loss: Less Sharp/More Dull + 1 9: Test Language/Aphasia - Normal; No aphasia + 0 10: Test Dysarthria - Mild-Moderate Dysarthria: Slurring but can be understood + 1 11: Test Extinction/Inattention - No abnormality + 0 NIHSS Score: 3 NIHSS Free Text : able to drink water without any problems. Pre-Morbid Modified [place] Scale: 0 Points = No symptoms at all Spoke with : Dr Wilkins Patient/Family was informed the Neurology Consult would occur via TeleHealth consult by way of interactive audio and video telecommunications and consented to receiving care in this manner. Patient is being evaluated for possible acute neurologic impairment and high probability of imminent or life-threatening deterioration. I spent total of 45 minutes providing care to this patient, including time for face to face visit via telemedicine, review of medical records, imaging studies and discussion of findings with providers, the patient and/or family. Dr Goran Thakkar [facility] For Inpatient follow-up with [facility] physician please call [facility] . This is not an outpatient service. Post hospital discharge, please contact hospital directly. Please call or reconsult our service if there are any clinical or diagnostic changes. Medical Decision Making 08/10/23 23:51 08/10/23 23:51
[2023-08-11] MEDS: APRESOLINE INJ 20 MG VIAL IVP ONE (00:30)
--- NOTE | 2023-08-11 00:32 | DR.GENAD ---
HPI Time Seen Time Seen by Provider: 08/10/23 23:39 PCP Primary Care Physician: YAJAIRA KANG Complaint/Symptoms Chief Complaint:: PT WAS BROUGHT BY AMBULANCE WITH C/O OF STROKE LIKE SYMPTOMS THAT STARTED AT 2145. UPON ARRIVAL THE PATIENT PRESENTED WITH LEFT SIDE FACIAL DROOPING AND SLURRED SPEECH. PATIENT WAS ROLLED TO CT UPON ARIVAL TO ER. Self Treatment fo Chief Complaint: PT TAKES ASPRIN DAILY COVID-19 Coronavirus risk:travel/contact w/high risk person: No Has patient experienced Coronavirus symptoms: No Nurses notes reviewed Nurses Notes Review: Yes Source History Provided: Patient Mode of Arrival Mode of Arrival: EMS Timing Onset of Chief Complaint: 08/11/23 Came on: Suddenly Duration Duration: Since Onset Severity Severity: Mild PMH PMH Past Medical History: Yes Past Medical History: Coronary Artery Disease, GERD, Hypertension, Kidney Stones and CT Past Surgical History: Yes Surgical History: Angioplasty/Stents, Appendectomy, Cholecystectomy, Hysterectomy and Tonsillectomy Past Surgical History Comment: STENTS X2 Family History History of Family Medical Conditions: Yes Family Medical History: Diabetes Mellitus and CT Social History Does patient currently use any type of tobacco product: No Have you used tobacco products in the last 12 months: No Type of Tobacco Use: None Does any household member use tobacco: No Alcohol Use: None Do you use any recreational Drugs:: No Lives With: Alone Lives Where: Home Travel Risk Coronavirus risk:travel/contact w/high risk person: No Has patient experienced Coronavirus symptoms: No Infectious screening Have you traveled outside the country in the last 6 months?: No Isolation: Standard ROS Review of Systems Neurological: See HPI and Speech Problem PE Vital Signs Vitals: Vital Signs Temperature 97.9 F Pulse Rate 80 Pulse Rate 84 Respiratory Rate 20 Respiratory Rate 20 Blood Pressure 169/81 Blood Pressure 191/87 O2 Sat by Pulse Oximetry 96 O2 Sat by Pulse Oximetry 96 General Limitations: No Limitations General Appearance: Alert and In No Apparent Distress Head Head Exam: Normal Inspection, Atraumatic and Normocephalic Eyes Eye exam: Normal Appearance, PERRL and EOMI ENT ENT Exam: Normal Exam and Other (Slight right-sided facial droop) Neck Neck Exam: Normal Inspection, Full ROM and Trachea Midline Chest Chest Inspection: Normal Inspection Respiratory Respiratory Exam: Normal Lung Sounds Bilat Cardiovascular Cardiovascular Exam: Regular Rate and Normal Rhythm Abdominal Exam Abdominal Exam: Normal Inspection Extremities Extremities Exam: Normal Inspection and Full ROM Back Back Exam: Normal Inspection Neurologic Neurological Exam: Alert, Oriented X3, CN II-XII Intact and Reflexes Normal Psychiatric Psychiatric Exam: Normal Affect and Normal Mood COURSE Treatment Treatment: CT head, labs, telehealth neurology consult, Plavix, ASA, admission Reevaluation 1st: Improved Education/Counseling Education/Counseling: Patient and Family ROR Labs Reviewed 08/10/23 23:51 08/10/23 23:51 Laboratory: WBC 9.3 X10^3/uL (3.6-10.0) 08/10/23 23:51 RBC 4.99 X10^6/uL (3.5-5.4) 08/10/23 23:51 Hgb 14.9 g/dL (12.0-16.0) 08/10/23 23:51 Hct 45.2 % (36.0-47.0) 08/10/23 23:51 MCV 90.5 fL (80.0-100.0) 08/10/23 23:51 MCH 29.8 pg (27.0-34.0) 08/10/23 23:51 MCHC 32.9 g/dL (33.0-35.0) L 08/10/23 23:51 RDW 14.2 % (11.6-16.5) 08/10/23 23:51 Plt Count 191 X10^3/uL (150.0-450.0) 08/10/23 23:51 MPV 8.7 fL (7.4-11.0) 08/10/23 23:51 Neut % (Auto) 63.0 % (42.0-75.0) 08/10/23 23:51 Lymph % (Auto) 22.8 % (21.0-51.0) 08/10/23 23:51 [place] % (Auto) 10.3 % (0.0-13.0) 08/10/23 23:51 Eos % (Auto) 3.5 % (0.9-2.9) H 08/10/23 23:51 Baso % (Auto) 0.4 % (0.2-1.0) 08/10/23 23:51 Neut # (Auto) 5.8 x10^3/uL (2.2-4.8) H 08/10/23 23:51 Lymph # (Auto) 2.1 X10^3/uL (1.3-2.9) 08/10/23 23:51 [place] # (Auto) 1.0 x10^3/uL (0.3-0.8) H 08/10/23 23:51 Eos # (Auto) 0.3 x10^3/uL (0.0-0.2) H 08/10/23 23:51 Baso # (Auto) 0.0 X10^3/uL (0.0-0.1) 08/10/23 23:51 Absolute Nucleated RBC 0.0 /100WBC 08/10/23 23:51 Sodium 146 mmol/L (136-145) H 08/10/23 23:51 Corrected Sodium 146 mmol/L (136-145) H 08/10/23 23:51 Potassium 4.0 mmol/L (3.5-5.1) 08/10/23 23:51 Chloride 108 mmol/L (98-107) H 08/10/23 23:51 Carbon Dioxide 29.1 mmol/L (21-32) 08/10/23 23:51 BUN 26 mg/dL (7-18) H 08/10/23 23:51 Creatinine 0.86 mg/dL (0.55-1.02) 08/10/23 23:51 Est GFR (MDRD) Af Amer > 60 (>60) 08/10/23 23:51 Est GFR (MDRD) Non-Af > 60 (>60) 08/10/23 23:51 Glucose 112 mg/dL (65-99) H 08/10/23 23:51 Calcium 9.4 mg/dL (8.5-10.1) 08/10/23 23:51 Corrected Calcium TNP 08/10/23 23:51 Total Bilirubin 0.30 mg/dL (0.2-1.0) 08/10/23 23:51 AST 15 Units/L (15-37) 08/10/23 23:51 ALT 22 Units/L (12-78) 08/10/23 23:51 Alkaline Phosphatase 85 Units/L (46-116) 08/10/23 23:51 Total Protein 7.6 g/dL (6.4-8.2) 08/10/23 23:51 Albumin 3.6 g/dL (3.4-5.0) 08/10/23 23:51 Globulin 4.0 g/dL (2.5-4.5) 08/10/23 23:51 Albumin/Globulin Ratio 0.9 Ratio (1.1-2.1) L 08/10/23 23:51 Opioid Opioid Risk Tool Age (Jez box if 16-45): No History of Preadolescent Sexual Abuse: No Total: 0 Total Score Risk Category: Low Risk Copyright: Ramiro MACKEY predicting aberrant behaviors Discharge Plan Diagnosis Discharge Problem: Brain TIA, Hypertension, uncontrolled Discharge Plan Patient Disposition: ADMITTED INPATIENT Condition: Stable Prescriptions: No Action Meloxicam [Mobic 7.5 mg] 7.5 MG Tab 1 tab PO DAILY metoprolol tartrate 25 MG tablet 25 mg PO BID hydrocodone-acetaminophen [Lortab 5-325] 1 TAB tablet 1 tab PO Q6H PRN (Reason: Pain) Qty: 12 0RF timolol maleate 0.5 % drops 1 drp EACHEYE BID latanoprost 0.005 % drops 1 drp EACHEYE HS allopurinol 300 mg tablet 300 mg PO DAILY Patient Comments: take 1 tablet by mouth once daily for 6 WEEKS. omeprazole 20 mg Capsule,Delayed Release(Dr/Ec) 20 mg PO HS hydrocodone-acetaminophen [[place]] 5-325 mg Tablet 1 tab PO Q4H PRN (Reason: Abdominal Pain) Qty: 15 0RF Rx Instructions: one tablet every four hours as needed. ketorolac 10 mg Tablet 10 mg PO Q6H PRNQty: 12 0RF ondansetron HCl [Zofran] 4 mg tablet 4 mg PO Q6H PRN (Reason: nausea and vomiting) Qty: 14 0RF tamsulosin [Flomax] 0.4 mg capsule 0.4 mg PO QHS Qty: 7 0RF Health Concerns: Post Hospitalization: new medications and changes needed to prevent readmission or further decline. Pt educated and given instructions on all concerns. Plan of Treatment: Continue with present treatment and follow up plan. Pt is to keep follow up appointment as instructed and take medications as ordered. Follow ups/Referrals Follow ups/Referrals: YAJAIRA KANG [Primary Care Provider] - 3 days
[2023-08-11] MEDS ORDERED: CONSULT PHARMACY - POTASSIUM & MAGNESIUM XX SCH (01:00)
[2023-08-11 01:55] LABS: BILIRUBIN,URINE NEGATIVE (NEGATIVE); BLOOD/HEMOGLOBIN,URINE 4+ (NEGATIVE); GLUCOSE, URINE NEGATIVE (NEGATIVE); KETONES,URINE NEGATIVE (NEGATIVE); LEUKOCYTE ESTERASE ,URINE NEGATIVE (NEGATIVE); NITRITES,URINE NEGATIVE (NEGATIVE); PROTEIN,URINE NEGATIVE (NEGATIVE); UROBILINOGEN,URINE NORMAL (NORMAL)
[2023-08-11 01:58] LABS: APPEARANCE,URINE CLEAR (CLEAR); COLOR,URINE PALE YELLOW (YELLOW)
[2023-08-11 01:59] LABS: BACTERIA,URINE TRACE /HPF (NEGATIVE); SQUAMOUS EPITHELIAL CELL,UR RARE /HPF (NEGATIVE)
[2023-08-11 02:08] VITALS: BMI 27.3
[2023-08-11 06:03] LABS: BASOPHILS % (AUTO) 0.5 % (0.2-1.0); EOSINOPHILS # (AUTO) 0.3 x10^3/uL (0.0-0.2); EOSINOPHILS % (AUTO) 3.2 % (0.9-2.9); HEMATOCRIT 43.9 % (36.0-47.0); HEMOGLOBIN 14.5 g/dL (12.0-16.0); LYMPHOCYTES # (AUTO) 2.3 X10^3/uL (1.3-2.9); LYMPHOCYTES % (AUTO) 25.6 % (21.0-51.0); MEAN CORPUSCULAR VOLUME 90.8 fL (80.0-100.0); MEAN PLATELET VOLUME 9.2 fL (7.4-11.0); MONOCYTES # (AUTO) 1.2 x10^3/uL (0.3-0.8); MONOCYTES % (AUTO) 13.1 % (0.0-13.0); NEUTROPHILS # (AUTO) 5.1 x10^3/uL (2.2-4.8); NEUTROPHILS % (AUTO) 57.6 % (42.0-75.0); PLATELET COUNT 187 X10^3/uL (150.0-450.0); RED BLOOD COUNT 4.84 X10^6/uL (3.5-5.4); RED CELL DISTRIBUTION WIDTH 14.5 % (11.6-16.5); WHITE BLOOD COUNT 8.9 X10^3/uL (3.6-10.0)
[2023-08-11 06:13] LABS: ALANINE AMINOTRANSFERASE 23 Units/L (12-78); ALBUMIN 3.3 g/dL (3.4-5.0); ALKALINE PHOSPHATASE 75 Units/L (46-116); ASPARTATE AMINO TRANSFERASE 16 Units/L (15-37); BLOOD UREA NITROGEN 22 mg/dL (7-18); CALCIUM 9.6 mg/dL (8.5-10.1); CARBON DIOXIDE 26.9 mmol/L (21-32); CHLORIDE 110 mmol/L (98-107); COR CA(FOR HYPOALB) 10.2 mg/dL (8.5-10.1); CREATININE 0.73 mg/dL (0.55-1.02); GLUCOSE 109 mg/dL (65-99); POTASSIUM 4.5 mmol/L (3.5-5.1); SODIUM 148 mmol/L (136-145); TOTAL PROTEIN 7.1 g/dL (6.4-8.2); eGFR NON BLACK RACES > 60 (>60)
[2023-08-11 08:41] LABS: CHOL/HDL RATIO 3.5 (0.0-5.0)
[2023-08-11] MEDS: ZYLOPRIM PO SCH (09:45)
[2023-08-11] MEDS: LOPRESSOR TAB 25 MG PO SCH (09:45)
[2023-08-11] MEDS: ZESTRIL TAB 10 MG PO SCH (09:45)
--- NOTE | 2023-08-11 10:31 | MRI ---
EXAM:BRAIN W/O CONHISTORY:tia vs cva/ pt states she lost her speech yesterday evening ;COMPARISON:CT head from 08/10/2023.TECHNIQUE:Multiplanar multi-sequence MRI of the brain was obtained utilizing standard departmental protocol. Sagittal and axial T1 weighted images were obtained. Axial T2 and flair weighted images were performed as well. Axial diffusion weighted and ADC trace mapping was performed.FINDINGS:Mild motion artifact such as the axial and sagittal T1 sequences.Diffusion imaging: Bandlike restricted diffusion in the right frontal lobe inferior frontal gyrus image 15 series 503. Restricted diffusion extends into the right frontal operculum image 13 series 503.Susceptibility weighted imaging: Punctate susceptibility artifact posterior horn right lateral ventricle possibly in the subependymal region image 13 axial T2 star. This can be seen with chronic hemosiderin or mineralization deposition.Brain volume: Appropriate for age.Ventricles and basal cisterns: Normal for age.Extra-axial spaces: No extra-axial collection.Cerebral parenchyma: No parenchymal mass identified. Mild amount of T2 and FLAIR hyperintensities in the subcortical and deep supratentorial white matter.Pituitary and other sagittal midline structures: Normal.Visualized orbits: Normal.Paranasal sinuses and mastoid air cells: Mild ethmoid air cell mucosal thickening.Bones: Intact.Other: None.IMPRESSION:Restricted diffusion in the right inferior frontal lobe extending into the right frontal operculum. This is consistent with acute or early subacute infarct.Mild chronic small vessel disease.THIS IS AN ELECTRONICALLY VERIFIED FINAL REPORT08/11/2023 10:28 AM - Electronically signed by Tim Baig MD
--- NOTE | 2023-08-11 11:19 | VAS ---
EXAM:CAROTID USHISTORY:tia, hypertension, hyperlipidemia; TIA,HTN,HYPERLIPIDEMIA ; BSA=1.55BSAType=OCCIDENTALCOMPARISON:None available.TECHNIQUE:Multiple medina scale, duplex and color flow Doppler images of the right and left carotid arterial system were obtained. The vertebral arterial system was evaluated as well.FINDINGS:Nonocclusive color flow Doppler is seen throughout the right and left carotid arterial system.There is [id number] atherosclerotic plaque formation of the bilateral carotid bulbs and proximal ICAs with associated intimal thickening but without evidence for high-grade stenosis (>70%) or occlusion of the carotid arteries. The right and left vertebral artery demonstrate antegrade flow.There is patent flow and normal duplex waveforms within the right and left external carotid arteries.Peak right ICA velocity: 72 centimeter/seconds.Peak right CCA velocity: 83 centimeter/seconds.Right ICA to CCA ratio: 1.7.Peak left ICA velocity: 109 centimeter/seconds.Peak left CCA velocity: 87 centimeter/seconds.Left ICA to CCA ratio: 2.2.IMPRESSION:No hemodynamically significant carotid artery stenosis is seen.[id number] bilateral CCA and proximal ICA atherosclerosis.Appropriate, antegrade, vertebral arterial flow seen bilaterally.THIS IS AN ELECTRONICALLY VERIFIED FINAL REPORT08/11/2023 11:15 AM - Electronically signed by Chaim Oliver
[2023-08-11] MEDS: PLAVIX PO SCH (11:26)
[2023-08-11] MEDS: ECOTRIN TAB 325 MG PO SCH (11:26)
[2023-08-11] MEDS: PROTONIX TAB 40 MG PO SCH (11:26)
[2023-08-11] MEDS: LIPITOR TAB 20 MG PO SCH (11:26)
[2023-08-11] MEDS: NORCO 5/325 MG TAB PO PRN (11:27)
[2023-08-11] MEDS ORDERED: PriLOSEC PO SCH (12:00)
--- NOTE | 2023-08-11 12:22 | DR.H&P ---
H&P History & Physical for Day of: H&P Date: 08/11/23 Chief Complaint Chief Complaint: slurred speech and facial drooping. Allergies Allergies Allergy/AdvReac Type Severity Reaction Status Date / Time naloxone Allergy Verified 04/20/20 08:53 pentazocine Allergy Verified 04/20/20 08:53 Sulfa (Sulfonamide Allergy Verified 04/20/20 08:53 Antibiotics) [SULFA] History of Present Illness History of Present Illness: 82 YO white female who is an ER admission after presenting with stroke like symptoms last night. States symptoms of left side facial drooping and slurred speech started on 08/10/23 around 2144. ER work up included CT head that showed mild cortical atrophy with microvascular ischemic white matter changes, remote pontine lacunar infarct versus artifact, no acute intracranial pathology. TELEMED for Stroke evaluation with Neurologist was obtained in the ER last night on arrival. Labs showed WBC 9.3, hgb 14.9, sodium 146, BUN 26/creatinine 0.86. Urinalysis was positive for blood, negative for nitrates. She does have a long history of kidney stones- most recent about a month ago. She was admitted for further treatment. She was started on plavix, aspirin, and atorvastatin and admitted for evaluation and treatment of Acute CVA. Past Medical History Past Medical History: Coronary Artery Disease, GERD, Hypertension, Kidney Stones and [place] Past Surgical History Surgical History: NAIL FEEDER Surgery Family History Family Medical History: Sudden Cardiac Social History Does patient currently use any type of tobacco product: No Have you used tobacco products in the last 12 months: No Type of Tobacco Use: None Does any household member use tobacco: No Alcohol Use: None Drug Use: None Medications Home Medications: Home Medications Medication Instructions Recorded Confirmed Type Meloxicam [Mobic 7.5 mg] 7.5 mg PO DAILY 03/21/14 08/11/23 History metoprolol tartrate 25 mg tablet 25 mg PO BID 08/03/14 08/11/23 History latanoprost 0.005 % eye drops 1 drp EACHEYE HS 04/17/17 08/11/23 History timolol maleate 0.5 % eye drops 1 drp EACHEYE BID 04/17/17 08/11/23 History allopurinol 300 mg tablet 300 mg PO DAILY 11/27/17 08/11/23 History omeprazole 20 mg capsule,delayed 20 mg PO HS 12/01/17 08/11/23 History release lisinopril 10 mg tablet 10 mg PO BID 08/11/23 08/11/23 History Labs 08/11/23 05:16 08/11/23 05:16 Labs: Laboratory WBC 8.9 X10^3/uL (3.6-10.0) 08/11/23 05:16 RBC 4.84 X10^6/uL (3.5-5.4) 08/11/23 05:16 Hgb 14.5 g/dL (12.0-16.0) 08/11/23 05:16 Hct 43.9 % (36.0-47.0) 08/11/23 05:16 MCV 90.8 fL (80.0-100.0) 08/11/23 05:16 MCH 30.0 pg (27.0-34.0) 08/11/23 05:16 MCHC 33.0 g/dL (33.0-35.0) 08/11/23 05:16 RDW 14.5 % (11.6-16.5) 08/11/23 05:16 Plt Count 187 X10^3/uL (150.0-450.0) 08/11/23 05:16 MPV 9.2 fL (7.4-11.0) 08/11/23 05:16 Neut % (Auto) 57.6 % (42.0-75.0) 08/11/23 05:16 Lymph % (Auto) 25.6 % (21.0-51.0) 08/11/23 05:16 [place] % (Auto) 13.1 % (0.0-13.0) H 08/11/23 05:16 Eos % (Auto) 3.2 % (0.9-2.9) H 08/11/23 05:16 Baso % (Auto) 0.5 % (0.2-1.0) 08/11/23 05:16 Neut # (Auto) 5.1 x10^3/uL (2.2-4.8) H 08/11/23 05:16 Lymph # (Auto) 2.3 X10^3/uL (1.3-2.9) 08/11/23 05:16 [place] # (Auto) 1.2 x10^3/uL (0.3-0.8) H 08/11/23 05:16 Eos # (Auto) 0.3 x10^3/uL (0.0-0.2) H 08/11/23 05:16 Baso # (Auto) 0.0 X10^3/uL (0.0-0.1) 08/11/23 05:16 Absolute Nucleated RBC 0.1 /100WBC 08/11/23 05:16 Sodium 148 mmol/L (136-145) H 08/11/23 05:16 Corrected Sodium TNP 08/11/23 05:16 Potassium 4.5 mmol/L (3.5-5.1) 08/11/23 05:16 Chloride 110 mmol/L (98-107) H 08/11/23 05:16 Carbon Dioxide 26.9 mmol/L (21-32) 08/11/23 05:16 BUN 22 mg/dL (7-18) H 08/11/23 05:16 Creatinine 0.73 mg/dL (0.55-1.02) 08/11/23 05:16 Est GFR (MDRD) Af Amer > 60 (>60) 08/11/23 05:16 Est GFR (MDRD) Non-Af > 60 (>60) 08/11/23 05:16 Glucose 109 mg/dL (65-99) H 08/11/23 05:16 Calcium 9.6 mg/dL (8.5-10.1) 08/11/23 05:16 Corrected Calcium 10.2 mg/dL (8.5-10.1) H 08/11/23 05:16 Total Bilirubin 0.30 mg/dL (0.2-1.0) 08/11/23 05:16 AST 16 Units/L (15-37) 08/11/23 05:16 ALT 23 Units/L (12-78) 08/11/23 05:16 Alkaline Phosphatase 75 Units/L (46-116) 08/11/23 05:16 Total Protein 7.1 g/dL (6.4-8.2) 08/11/23 05:16 Albumin 3.3 g/dL (3.4-5.0) L 08/11/23 05:16 Globulin 3.8 g/dL (2.5-4.5) 08/11/23 05:16 Albumin/Globulin Ratio 0.9 Ratio (1.1-2.1) L 08/11/23 05:16 Triglycerides 119 mg/dL (0-150) 08/11/23 05:16 Cholesterol 198 mg/dL (0-200) 08/11/23 05:16 LDL Cholesterol, Calc 117 mg/dL (0-100) H 08/11/23 05:16 HDL Cholesterol 57 mg/dL (40-60) 08/11/23 05:16 Cholesterol/HDL Ratio 3.5 (0.0-5.0) 08/11/23 05:16 Specimen Type Random urine 08/11/23 01:39 Urine Color Pale yellow (YELLOW) 08/11/23 01:39 Urine Appearance Clear (CLEAR) 08/11/23 01:39 Urine pH 6.0 (5.0 - 8.0) 08/11/23 01:39 Ur Specific [place] 1.015 (1.000-1.030) 08/11/23 01:39 Urine Protein Negative (NEGATIVE) 08/11/23 01:39 Urine Glucose (UA) Negative (NEGATIVE) 08/11/23 01:39 Urine Ketones Negative (NEGATIVE) 08/11/23 01:39 Urine Blood 4+ (NEGATIVE) 08/11/23 01:39 Urine Nitrite Negative (NEGATIVE) 08/11/23 01:39 Urine Bilirubin Negative (NEGATIVE) 08/11/23 01:39 Urine Urobilinogen Normal (NORMAL) 08/11/23 01:39 Ur Leukocyte Esterase Negative (NEGATIVE) 08/11/23 01:39 Urine RBC 3-5 /HPF (0-3) A 08/11/23 01:39 Urine WBC 0-2 /HPF (0-5) 08/11/23 01:39 Ur Squamous Epith Cells Rare /HPF (NEGATIVE) 08/11/23 01:39 Urine Bacteria Trace /HPF (NEGATIVE) 08/11/23 01:39 Ur Culture Indicated? No/not indicated 08/11/23 01:39 Review of Systems Constitutional: Weakness Eyes: No Symptoms Reported ENT: denies Nose Discharge, Nose Congestion, Throat Pain or Throat Swelling Respiratory: No Symptoms Reported Cardiovascular: Light Headedness Gastrointestinal: denies Nausea, Vomiting or Diarrhea Genitourinary: No Symptoms Reported Musculoskeletal: No Symptoms Reported Skin: No Symptoms Reported Neurological: Weakness (left facial droop), Change in Speech and Other Physical Exam Vital Signs: Vital Signs Temperature 98.0 F Temperature 98.0 F Temperature 98.0 F Pulse Rate [Left Brachial] 76 Pulse Rate [Left Brachial] 87 Pulse Rate [Left Brachial] 87 Respiratory Rate 18 Respiratory Rate 18 Respiratory Rate 20 Respiratory Rate 20 Blood Pressure [Left Arm] 121/68 Blood Pressure [Right Arm] 142/66 Blood Pressure [Right Arm] 121/68 O2 Sat by Pulse Oximetry 98 O2 Sat by Pulse Oximetry 97 O2 Sat by Pulse Oximetry 97 Oriented: Normal and Other (family reports pt was a little confused on arrival ) Eyes: Normal Nose: Normal Throat: Normal Respiratory: RLL Diminished and LLL Diminished Cardiovascular: Normal; negative Murmur or Edema Auscultation: Bowel Sounds: Normal Tenderness: Normal Skin: Normal Musculoskeletal: Motor Deficit (left side facial droop ) Psychiatric: Anxiety Mood Description: Anxious Speech Pattern: Slurred Assessment/Plan (1) Acute CVA (cerebrovascular accident): Narrative Support Text: ADMIT, MRI BRAIN CAROTID ARTERY US, CONTINUE TELEMETRY CARDIAC EZYMES AND EKG FLP, ASPIRIN STATIN PLAVIX THERAPY BP CONTROL SPEECH THERAPY CONSULT. Status: Acute (2) Hypertension: Status: Acute (3) CAD (coronary artery disease): Status: Acute
--- NOTE | 2023-08-11 13:45 | EKG ---
Test Reason : CVA Blood Pressure : */* mmHG Vent. Rate : 77 BPM Atrial Rate : 77 BPM P-R Int : 196 ms QRS Dur : 74 ms QT Int : 392 ms P-R-T Axes : 26 -33 28 degrees QTc Int : 443 ms Normal sinus rhythm Left axis deviation Left ventricular hypertrophy with repolarization abnormality ( R in aVL ) Possible Lateral infarct , age undetermined Abnormal ECG When compared with ECG of 10-AUG-2023 23:50, Borderline criteria for Lateral infarct are now present Nonspecific T wave abnormality now evident in Lateral leads horrible baseline artifact Confirmed by Atul Lemons MD ([id number]) on 08/11/2023 1:44:18 PM Referred By: Confirmed By: Atul Lemons MD
[2023-08-11] MEDS: NS 1/2 1,000 ML IV 1,000 ML IV SCH (19:00)
[2023-08-12] MEDS ORDERED: NS 1/2 1,000 ML IV 1,000 ML IV ONE (05:57)
[2023-08-12 06:34] LABS: BASOPHILS % (AUTO) 0.5 % (0.2-1.0); EOSINOPHILS # (AUTO) 0.2 x10^3/uL (0.0-0.2); EOSINOPHILS % (AUTO) 3.3 % (0.9-2.9); HEMATOCRIT 44.3 % (36.0-47.0); HEMOGLOBIN 14.5 g/dL (12.0-16.0); LYMPHOCYTES # (AUTO) 2.1 X10^3/uL (1.3-2.9); LYMPHOCYTES % (AUTO) 29.2 % (21.0-51.0); MEAN CORPUSCULAR HEMOGLOBIN 29.8 pg (27.0-34.0); MEAN CORPUSCULAR HGB CONC 32.6 g/dL (33.0-35.0); MEAN CORPUSCULAR VOLUME 91.2 fL (80.0-100.0); MEAN PLATELET VOLUME 8.9 fL (7.4-11.0); MONOCYTES % (AUTO) 14.3 % (0.0-13.0); NEUTROPHILS # (AUTO) 3.8 x10^3/uL (2.2-4.8); NEUTROPHILS % (AUTO) 52.7 % (42.0-75.0); PLATELET COUNT 184 X10^3/uL (150.0-450.0); RED BLOOD COUNT 4.86 X10^6/uL (3.5-5.4); RED CELL DISTRIBUTION WIDTH 14.4 % (11.6-16.5); WHITE BLOOD COUNT 7.2 X10^3/uL (3.6-10.0)
[2023-08-12 06:47] LABS: ALANINE AMINOTRANSFERASE 25 Units/L (12-78); ALBUMIN 3.1 g/dL (3.4-5.0); ALKALINE PHOSPHATASE 70 Units/L (46-116); ASPARTATE AMINO TRANSFERASE 20 Units/L (15-37); BLOOD UREA NITROGEN 23 mg/dL (7-18); CALCIUM 9.4 mg/dL (8.5-10.1); CARBON DIOXIDE 30.4 mmol/L (21-32); CHLORIDE 111 mmol/L (98-107); COR CA(FOR HYPOALB) 10.1 mg/dL (8.5-10.1); CREATININE 0.78 mg/dL (0.55-1.02); GLUCOSE 102 mg/dL (65-99); POTASSIUM 5.1 mmol/L (3.5-5.1); SODIUM 148 mmol/L (136-145); TOTAL PROTEIN 6.9 g/dL (6.4-8.2); eGFR NON BLACK RACES > 60 (>60)
[2023-08-13 08:06] VITALS: RESP 18
[2023-08-13 12:22] VITALS: BP 135/87; PULSE 70; TEMP 98; O2SAT 95
--- NOTE | 2023-08-13 17:14 | PCM.PROG ---
Progress Note Progress Note for Day of Date of Exam: 08/12/23 Subjective Subjective: 82-year-old white female who is an ER admission after presenting with stroke like symptoms. ER work up included CT head that showed mild cortical atrophy with microvascular ischemic white matter changes, remote pontine lacunar infarct versus artifact, no acute intracranial pathology. Neurology was consulted for stroke evaluation via telemedicine while in ER. Initial labs showed WBC 9.3, hgb 14.9, sodium 146, BUN 26/creatinine 0.86. She was started on plavix, aspirin, and atorvastatin and admitted for evaluation and treatment of Acute CVA. Upon admission, patient had an MRI head that showed restricted diffusion in the right inferior frontal lobe extending into the right frontal operculum. This is consistent with acute or early subacute infarct, mild chronic small vessel disease. She also had a carotid ultrasound that showed no significant carotid artery stenosis, mild to moderate bilateral cca and proximal ica atherosclerosis, appropriate antegrade, vertebral arterial flow seen bilaterally. Morning labs: wbc 7.2, hgb 14.5, Na 148, chloride 111, BUN 23/creatinine 0.78. Patient has continued speech deficit and ordered for speech evaluation. Speech evaluation performed this morning and patient was recommended for mechanical soft diet with chopped meats and thin liquids. She had an echocardiogram this morning with an EF at 65%. Vitals: 119/65-78-98.3-18-96% room air. Past Medical Family Social History Allergies: Allergies naloxone Allergy (Verified 04/20/20 08:53) pentazocine Allergy (Verified 04/20/20 08:53) Sulfa (Sulfonamide Antibiotics) [SULFA] Allergy (Verified 04/20/20 08:53) Vital Signs and I&O's Vital Signs: Vital Signs Temperature 98.0 F Pulse Rate [Right Brachial] 70 Respiratory Rate 18 Blood Pressure [Right Arm] 135/87 O2 Sat by Pulse Oximetry 95 Intake and Output: Intake & Output 08/11/23 08/12/23 08/13/23 08/14/23 11:59 11:59 11:59 11:59 Intake Total 120 / 120 1080 / 1080 1420 / 1420 Balance 120 / 120 1080 / 1080 1420 / 1420 Physical Exam Oriented: Normal and Other (family reports pt was a little confused on arrival ) Eyes: Normal Nose: Normal Throat: Normal Cardiovascular: Normal; negative Murmur or Edema Auscultation: Bowel Sounds: Normal Tenderness: Normal Skin: Normal Musculoskeletal: Motor Deficit (left side facial droop ) Psychiatric: Anxiety Mood Description: Anxious Speech Pattern: Clear and Appropriate Laboratory and Diagnostics 08/12/23 06:14 08/12/23 06:14 Labs: 08/11/23 16:30 Urine,Clean Catch Urine Culture - Final Laboratory WBC 7.2 X10^3/uL (3.6-10.0) 08/12/23 06:14 RBC 4.86 X10^6/uL (3.5-5.4) 08/12/23 06:14 Hgb 14.5 g/dL (12.0-16.0) 08/12/23 06:14 Hct 44.3 % (36.0-47.0) 08/12/23 06:14 MCV 91.2 fL (80.0-100.0) 08/12/23 06:14 MCH 29.8 pg (27.0-34.0) 08/12/23 06:14 MCHC 32.6 g/dL (33.0-35.0) L 08/12/23 06:14 RDW 14.4 % (11.6-16.5) 08/12/23 06:14 Plt Count 184 X10^3/uL (150.0-450.0) 08/12/23 06:14 MPV 8.9 fL (7.4-11.0) 08/12/23 06:14 Neut % (Auto) 52.7 % (42.0-75.0) 08/12/23 06:14 Lymph % (Auto) 29.2 % (21.0-51.0) 08/12/23 06:14 [place] % (Auto) 14.3 % (0.0-13.0) H 08/12/23 06:14 Eos % (Auto) 3.3 % (0.9-2.9) H 08/12/23 06:14 Baso % (Auto) 0.5 % (0.2-1.0) 08/12/23 06:14 Neut # (Auto) 3.8 x10^3/uL (2.2-4.8) 08/12/23 06:14 Lymph # (Auto) 2.1 X10^3/uL (1.3-2.9) 08/12/23 06:14 [place] # (Auto) 1.0 x10^3/uL (0.3-0.8) H 08/12/23 06:14 Eos # (Auto) 0.2 x10^3/uL (0.0-0.2) 08/12/23 06:14 Baso # (Auto) 0.0 X10^3/uL (0.0-0.1) 08/12/23 06:14 Absolute Nucleated RBC 0.1 /100WBC 08/12/23 06:14 D-Dimer 0.57 ug/ml (0.0-0.57) 08/11/23 05:16 Sodium 148 mmol/L (136-145) H 08/12/23 06:14 Corrected Sodium TNP 08/12/23 06:14 Potassium 5.1 mmol/L (3.5-5.1) 08/12/23 06:14 Chloride 111 mmol/L (98-107) H 08/12/23 06:14 Carbon Dioxide 30.4 mmol/L (21-32) 08/12/23 06:14 BUN 23 mg/dL (7-18) H 08/12/23 06:14 Creatinine 0.78 mg/dL (0.55-1.02) 08/12/23 06:14 Est GFR (MDRD) Af Amer > 60 (>60) 08/12/23 06:14 Est GFR (MDRD) Non-Af > 60 (>60) 08/12/23 06:14 Glucose 102 mg/dL (65-99) H 08/12/23 06:14 Calcium 9.4 mg/dL (8.5-10.1) 08/12/23 06:14 Corrected Calcium 10.1 mg/dL (8.5-10.1) 08/12/23 06:14 Total Bilirubin 0.50 mg/dL (0.2-1.0) 08/12/23 06:14 AST 20 Units/L (15-37) 08/12/23 06:14 ALT 25 Units/L (12-78) 08/12/23 06:14 Alkaline Phosphatase 70 Units/L (46-116) 08/12/23 06:14 Creatine Kinase 45 Units/L (26-192) 08/11/23 05:16 Troponin I High Sens 14.2 ng/L (4.0-60.0) 08/11/23 05:16 Total Protein 6.9 g/dL (6.4-8.2) 08/12/23 06:14 Albumin 3.1 g/dL (3.4-5.0) L 08/12/23 06:14 Globulin 3.8 g/dL (2.5-4.5) 08/12/23 06:14 Albumin/Globulin Ratio 0.8 Ratio (1.1-2.1) L 08/12/23 06:14 Triglycerides 119 mg/dL (0-150) 08/11/23 05:16 Cholesterol 198 mg/dL (0-200) 08/11/23 05:16 LDL Cholesterol, Calc 117 mg/dL (0-100) H 08/11/23 05:16 HDL Cholesterol 57 mg/dL (40-60) 08/11/23 05:16 Cholesterol/HDL Ratio 3.5 (0.0-5.0) 08/11/23 05:16 Specimen Type Random urine 08/11/23 01:39 Urine Color Pale yellow (YELLOW) 08/11/23 01:39 Urine Appearance Clear (CLEAR) 08/11/23 01:39 Urine pH 6.0 (5.0 - 8.0) 08/11/23 01:39 Ur Specific [place] 1.015 (1.000-1.030) 08/11/23 01:39 Urine Protein Negative (NEGATIVE) 08/11/23 01:39 Urine Glucose (UA) Negative (NEGATIVE) 08/11/23 01:39 Urine Ketones Negative (NEGATIVE) 08/11/23 01:39 Urine Blood 4+ (NEGATIVE) 08/11/23 01:39 Urine Nitrite Negative (NEGATIVE) 08/11/23 01:39 Urine Bilirubin Negative (NEGATIVE) 08/11/23 01:39 Urine Urobilinogen Normal (NORMAL) 08/11/23 01:39 Ur Leukocyte Esterase Negative (NEGATIVE) 08/11/23 01:39 Urine RBC 3-5 /HPF (0-3) A 08/11/23 01:39 Urine WBC 0-2 /HPF (0-5) 08/11/23 01:39 Ur Squamous Epith Cells Rare /HPF (NEGATIVE) 02/26/24 01:39 Urine Bacteria Trace /HPF (NEGATIVE) 08/11/23 01:39 Ur Culture Indicated? No/not indicated 08/11/23 01:39 Plan (1) Acute CVA (cerebrovascular accident): Status: Acute Narrative Support Text: Continue aspirin, plavix, atorvastatin. Continue IV hydration, speech therapy, BP control, Supplemental 02 PRN. Plan for repeat AM labs. recommend Holter on DC and Routine cardiac evaluation (2) Hypertension: Status: Acute (3) CAD (coronary artery disease): Status: Acute
== END 2023-08-13 14:50 | disposition home health service (06) | DRG 66 ==
LOC: ER 23:27 → MED/SURG 08-11 00:33
PROVIDERS: ADMIT Internal Medicine; ATTEND Internal Medicine
DX: R40.4 Transient alteration of awareness; I10 Essential (primary) hypertension; I63.89 Other cerebral infarction; I25.10 Atherosclerotic heart disease of native coronary artery without angina pectoris; R47.81 Slurred speech; R29.810 Facial weakness; K21.9 Gastro-esophageal reflux disease without esophagitis; E78.5 Hyperlipidemia, unspecified